=== PATIENT | male | born 1940 | race Caucasian/White ===

== ENCOUNTER 2019-06-28 22:22 | Inpatient (IN) | payer MEDICARE, MEDICAID, SELFPAY ==
--- NOTE | ~2019-06-28 | CT_ITS ---
EXAMINATION: CT abdomen pelvis w con DATE: 06/29/2019 00:10 INDICATION: Abdominal pain with rectal bleeding TECHNIQUE: Computed tomography (CT) of the abdomen and pelvis was performed with 100 mL Omnipaque-350 intravenous contrast. Automated exposure control and iterative reconstruction technique were employe d. The dose-length product was 673.92 mGy-cm. COMPARISON: 01/02/2018 FINDINGS: Respiratory motion at the lung bases with no evident airspace disease or pleural effusion. Cardiomega ly. Atherosclerotic coronary artery calcific a cyst. Postoperative change of prior median sternotomy and coronary artery bypass grafting as well as aortic valve repair. Cardiac pacemaker lead tips at th e right atrial appendage and near the apex of the right ventricle. No pericardial effusion. High attenuation material within the decompressed gallbladder which could represent vicariously excre kelsey contrast or gallstones. There is a new poorly defined approximately 3.1 x 3.5 cm low-attenuation mass at the head of the pancreas with interval atrophy atrophy of the body and tail the pancreas with dilation of the main pancreatic duct which is concerning for primary pancreatic carcinoma. There are multiple new small hypoenhancing lesions scattered throughout the liver suspicious for metastatic di sease. Spleen and bilateral adrenal glands are normal. Bilateral nonobstructing nephrolithiasis. 3.4 cm exophytic cyst at the upper pole of the left kidney. There are 3 stones in the bladder, 2 of which measuring 3 mm 4 mm appear to be positioned at the lef t ureterovesicular junction, the third 5 mm stone is located along the posterior wall cephalad to the ureter vesicular junction likely within the bladder. No hydronephrosis. Normal appendix. No abnormal bowel wall thickening or obstruction. No free intraperitoneal gas or flu id. No pathologically enlarged abdominal or pelvic lymphadenopathy. There is calcified atherosclerosi s of the aorta and many of the other arteries. Multiple chronic lumbar and lower thoracic compressio n fractures with change of prior vertebroplasty at T12 and L1. Old right superior and inferior pubic rami fractures. Left total hip arthroplasty. IMPRESSION: 1. 3.1 x 3.5 cm low-attenuation mass at the head of the pancreas concerning for primary pancreatic ca rcinoma. 2. Multiple small hypoenhancing hepatic lesions suspicious for metastatic disease. 3. High attenuation material within the decompressed gallbladder which could represent gallstones or vicariously excreted contrast if patient has had recent intravenous contrast. 4. Cardiomegaly. 5. Bilateral nephrolithiasis as well as a few stones at the bladder to which appear positioned at the left ureterovesicular junction but without hydronephrosis. Reviewed, dictated and finalized at location A. [facility] IMPRESSION: 1. 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 2. Multiple small hypoenhancing hepatic lesions suspicious for metastatic disea se. 3. High attenuation material within the decompressed gallbladder which could re present gallstones or vicariously excreted contrast if patient has had recent i ntravenous contrast. 4. Cardiomegaly. 5. Bilateral nephrolithiasis as well as a few stones at the bladder to which ap pear positioned at the left ureterovesicular junction but without hydronephrosi s.
--- NOTE | ~2019-06-28 | NM_ITS ---
EXAMINATION: NM GI bleeding DATE: 06/29/2019 12:19 INDICATION: Gastrointestinal hemorrhage. TECHNIQUE: 25.5 mCi Tc 99m in vitro labeled red cells was administered intravenously. Scintigraphic images of the abdomen were obtained for one hour. COMPARISON: CT abdomen and pelvis 06/29/2019 FINDINGS: No pattern of abnormal activity is seen in the abdomen or pelvis to suggest gastrointestina l hemorrhage. IMPRESSION: 1. No evidence of active gastrointestinal hemorrhage. Reviewed, dictated and finalized at location A. ERT[employer] INSURANCE AGENT
--- NOTE | ~2019-06-28 | XR_ITS ---
EXAMINATION: XR chest port-a-cath/central DATE: 06/29/2019 03:17 INDICATION: Central line placement. TECHNIQUE: A single frontal view of the chest was obtained. COMPARISON: Chest 2 views 01/24/2019, CT abdomen and pelvis 06/29/2019 FINDINGS: There is no pneumonia, pleural effusion, or pneumothorax. Cardiomegaly is noted. Median idris rnotomy wires are noted. There are changes of aortic valve replacement. A right subclavian central ve nous catheter is seen with tip in the superior vena cava. There is a left chest pacer with lead in ri ght atrium and right ventricular lead partially visualized. IMPRESSION: 1. Central line tip in superior vena cava. No pneumothorax. 2. Cardiomegaly. Reviewed, dictated and finalized at location A. [employer] OPERATIONS SPECIALIST
--- NOTE | ~2019-06-28 | XR_ITS ---
EXAMINATION: XR abdomen NG/feed tube insert DATE: 06/29/2019 16:22 INDICATION: Nasogastric tube placement TECHNIQUE: A supine view of the abdomen and lower chest was obtained for evaluation of feeding tube placement. COMPARISON: Chest x-ray dated 06/29/2019 FINDINGS: Nasogastric tube tip in proximal side port in the body of the stomach. Right subclavian central venou s catheter with distal tip at the midsuperior vena cava. Dual lead pacemaker seen with leads projecti ng over the expected locations of the right atrium and right ventricle. Mild airspace opacity in the right midlung zone which could represent atelectasis or pneumonia. No pu lmonary edema, pleural effusion or pneumothorax. Cardiomegaly. Median sternotomy wires, ostial marker s and mediastinal surgical clips consistent with prior coronary artery bypass grafting. Aortic valve replacement. T12 vertebroplasty. IMPRESSION: 1. Is a gastric tube in stomach. 2. New subtle airspace opacity in the right midlung zone which could represent atelectasis or pneumon ia. 3. Cardiomegaly. Reviewed, dictated and finalized at location A. INE SILVER STRIPPER IMPRESSION: 1. Is a gastric tube in stomach. 2. New subtle airspace opacity in the right midlung zone which could represent atelectasis or pneumonia. 3. Cardiomegaly.
--- NOTE | 2019-06-28 22:24 | ED.GIBLEED ---
HPI - GI Bleed General Chief complaint: GI Bleed Stated complaint: abd pain Time Seen by Provider: 06/28/19 22:26 Related Data Home Medications Medication Instructions Recorded Confirmed acetaminophen 325 mg tablet 325 mg PO Q6H PRN 03/26/19 albuterol sulfate 2.5 mg INHALATION Q6H 03/26/19 aspirin 325 mg tablet,delayed 325 mg PO DAILY 03/26/19 release cetirizine 10 mg tablet 5 mg PO DAILY PRN 03/26/19 cholecalciferol (vitamin D3) 25 1,000 unit PO DAILY 03/26/19 mcg (1,000 unit) capsule citalopram 20 mg tablet 20 mg PO DAILY 03/26/19 finasteride 5 mg tablet 5 mg PO DAILY 03/26/19 fluticasone propionate 115 2 puff INHALATION BID 03/26/19 mcg-salmeterol 21 mcg/actuation HFA inhaler fluticasone propionate 50 1 inhalation INHALATION Q12H 03/26/19 mcg/actuation blister powder for inhalation furosemide 20 mg tablet 20 mg PO QAM 03/26/19 lisinopril 2.5 mg tablet 2.5 mg PO DAILY 03/26/19 lovastatin 20 mg tablet 20 mg PO DAILY 03/26/19 mecobalamin (vitamin B12) 1,000 1,000 mcg SUBLINGUAL DAILY 03/26/19 mcg disintegrating tablet,sublingual metoprolol succinate 25 mg 25 mg PO DAILY 03/26/19 tablet,extended release 24 hr polyethylene glycol 3350 17 17 gm PO DAILY 03/26/19 gram/dose oral powder tiotropium bromide 18 mcg capsule 1 cap INHALATION DAILY 03/26/19 with inhalation device spironolactone 25 mg tablet 12.5 mg PO DAILY tablet 03/27/19 03/27/19 Allergies Allergy/AdvReac Type Severity Reaction Status Date / Time amiodarone Allergy Unknown Unknown Verified 03/27/19 13:09 citalopram Allergy Unknown Unknown Verified 03/27/19 13:09 [facility] Past Medical History Medical History (Updated 06/28/19 @ 22:35 by Max Gipson) Anemia Anxiety Asthma Back pain Bronchitis CAD (coronary artery disease) Chronic heart failure Chronic obstructive pulmonary disease, unspecified Chronic systolic heart failure Depression Dyspnea, unspecified Eczema Essential hypertension GERD (gastroesophageal reflux disease) History of cardiac arrest Hyperlipidemia, unspecified Hypotension, unspecified Kidney stones LBBB (left bundle branch block) SOB (shortness of breath) Surgical History Surgical History (Updated 06/28/19 @ 22:35 by Max Gipson) History of aortic valve replacement History of left hip replacement Social History Social History Smoking status: Former smoker Smoking end date: 05/23/13 Alcohol intake: never
--- NOTE | 2019-06-28 22:25 | ED.GIBLEED ---
HPI - GI Bleed General Chief complaint: GI Bleed Stated complaint: abd pain Time Seen by Provider: 06/28/19 22:26 Source: patient, EMS and RN notes reviewed Mode of arrival: EMS Limitations: physical limitation (hard of hearing) History of Present Illness HPI Narrative: Pt is a 79 y/o male who presents to the ED via EMS from [facility] with c/o epigastric pain and dark, tarry stools starting this morning. He notes that his pain radiates from his epigastric region down into his lower ABD, and states that his pain has worsened throughout the day. Pt is currently taking ASA. HPI limited due to the pt being hard of hearing. MD complaint: melena and other (ABD pain) Pain Consistency: other (worsening) Associated symptoms: denies other symptoms Related Data Home Medications Medication Instructions Recorded Confirmed acetaminophen 325 mg tablet 325 mg PO Q6H PRN 03/26/19 albuterol sulfate 2.5 mg INHALATION Q6H 03/26/19 aspirin 325 mg tablet,delayed 325 mg PO DAILY 03/26/19 release cetirizine 10 mg tablet 5 mg PO DAILY PRN 03/26/19 cholecalciferol (vitamin D3) 25 1,000 unit PO DAILY 03/26/19 mcg (1,000 unit) capsule citalopram 20 mg tablet 20 mg PO DAILY 03/26/19 finasteride 5 mg tablet 5 mg PO DAILY 03/26/19 fluticasone propionate 115 2 puff INHALATION BID 03/26/19 mcg-salmeterol 21 mcg/actuation HFA inhaler fluticasone propionate 50 1 inhalation INHALATION Q12H 03/26/19 mcg/actuation blister powder for inhalation furosemide 20 mg tablet 20 mg PO QAM 03/26/19 lisinopril 2.5 mg tablet 2.5 mg PO DAILY 03/26/19 lovastatin 20 mg tablet 20 mg PO DAILY 03/26/19 mecobalamin (vitamin B12) 1,000 1,000 mcg SUBLINGUAL DAILY 03/26/19 mcg disintegrating tablet,sublingual metoprolol succinate 25 mg 25 mg PO DAILY 03/26/19 tablet,extended release 24 hr polyethylene glycol 3350 17 17 gm PO DAILY 03/26/19 gram/dose oral powder tiotropium bromide 18 mcg capsule 1 cap INHALATION DAILY 03/26/19 with inhalation device spironolactone 25 mg tablet 12.5 mg PO DAILY tablet 03/27/19 03/27/19 Allergies Allergy/AdvReac Type Severity Reaction Status Date / Time amiodarone Allergy Unknown Unknown Verified 03/27/19 13:09 citalopram Allergy Unknown Unknown Verified 03/27/19 13:09 Review of Systems Review of Systems: Narrative: ROS limited due to the pt being hard of hearing. Gastrointestinal: Gastrointestinal: Reports abdominal pain (epigastric pain radiating into lower ABD) and Reports melena PMFSH Past Medical History Medical History Anemia Anxiety Asthma Back pain Bronchitis CAD (coronary artery disease) Chronic heart failure Chronic obstructive pulmonary disease, unspecified Chronic systolic heart failure Depression Dyspnea, unspecified Eczema Essential hypertension GERD (gastroesophageal reflux disease) History of cardiac arrest Hyperlipidemia, unspecified Hypotension, unspecified Kidney stones LBBB (left bundle branch block) SOB (shortness of breath) Surgical History Surgical History History of aortic valve replacement History of left hip replacement Family History Family History (Updated 06/28/19 @ 23:57 by Dana Barr DO) Father CHF (congestive heart failure) Mother CHF (congestive heart failure) Sibling Malignant neoplasm of prostate Brother Social History Social History Social History: Primary care physician: Dr. Tyler Simeon Code status: DNR per prior records, surrogate decision maker is his brother Alexandre. Smoking packs per day: 1 Smoking cigarettes per day: 20.0 Years smoked: 40 Smoking pack-years: 40.00 Smoking status: Former smoker Smoking end date: 05/23/13 Alcohol intake: never Substance use: never Living arrangements: assisted living [facility]
[2019-06-28 22:49] VITALS: BP 90/65; PULSE 120; RESP 38; TEMP 36.8; O2SAT 99
[2019-06-28] MEDS: SODIUM CHLORIDE 0.9% IV 1,000 ML 999 ML IV CONT (23:07)
[2019-06-28] MEDS: ONDANSETRON INJ 4 MG/2 ML VIAL IV PUSH (23:08)
[2019-06-28] MEDS: PANTOPRAZOLE SODIUM IV 40 MG VIAL IV PUSH (23:08)
[2019-06-28 23:13] LABS: Basophils Absolute Auto 0.1 K/mm3 (0.0-0.1); Basophils Percent Auto 0.5 % (0.2-1.2); Eosinophils Percent Auto 0.1 % (0-4.4); Hematocrit 30.6 % (42.0-52.0); Hemoglobin 9.8 g/dL (14.0-18.0); Immature Granulocyte Absolute 0.05 K/mm3 (0.00-0.031); Immature Granulocyte Percent A 0.5 % (0-0.5); Immature Platelet Fraction Pct 8.8 % (0.9-11.2); Lymphocytes Absolute Auto 1.22 K/mm3 (0.9-3.2); Lymphocytes Percent Auto 11.1 % (18.3-44.2); Mean Corpuscular Hemoglobin 31.9 pg (26-34); Mean Corpuscular Volume 99.7 fl (80-100); Mean Platelet Volume 13.2 fl (7.4-10.4); Monocytes Absolute Auto 0.5 K/mm3 (0.1-0.6); Monocytes Percent Auto 4.6 % (2.6-8.5); Neutrophils Absolute Auto 9.2 K/mm3 (1.3-6.7); Neutrophils Percent Auto 83.2 % (45.5-73.1); Platelet Count Result 123 k/mm3 (150-375); Red Blood Count 3.07 M/mm3 (4.6-6.20); Red Cell Distribution Width 15.2 % (11.5-14.5)
[2019-06-28 23:26] LABS: INR 1.2; Partial Thromboplastin Time 25.8 SECONDS (22.3-36.8); Prothrombin Time 15.1 Seconds (11.1-14.7)
[2019-06-28 23:27] VITALS: BP 80/48; PULSE 111; RESP 23; O2SAT 95
[2019-06-28 23:31] LABS: Alanine Aminotransferase 17 U/L (4-50); Albumin Level 3.1 g/dL (3.5-5.1); Alkaline Phosphatase 77 U/L (38-126); Aspartate Amino Transferase 20 U/L (17-59); Bilirubin,Total 0.8 mg/dL (0.2-1.3); Blood Urea Nitrogen 36 mg/dL (9-20); Calcium 8.9 mg/dL (8.4-10.2); Carbon Dioxide 24 mmol/L (22-30); Chloride 103 mmol/L (98-107); Estimated Glomerular Filt Rate 42; Glucose 157 mg/dL (75-110); Lactic Acid 1.7 mmol/L (0.7-2.1); Potassium 4.7 mmol/L (3.4-5.0); Sodium 137 mmol/L (137-145)
[2019-06-28] MEDS: SODIUM CHLORIDE 0.9% IV 1,000 ML 999 ML (23:44)
[2019-06-29] VITALS (39 sets, daily range): BP systolic 66–118; BP diastolic 48–84; PULSE 88–133; RESP 18–36; TEMP 36.6–37.1; O2SAT 92–100; BMI 26.6
--- NOTE | 2019-06-29 00:40 | ED.GENADULT ---
HPI - General Adult General Chief complaint: GI Bleed Stated complaint: abd pain Time Seen by Provider: 06/28/19 22:26 Source: patient, EMS and RN notes reviewed Mode of arrival: EMS Limitations: physical limitation (hard of hearing) Related Data Home Medications Medication Instructions Recorded Confirmed acetaminophen 325 mg tablet 325 mg PO Q6H PRN 03/26/19 albuterol sulfate 2.5 mg INHALATION Q6H 03/26/19 aspirin 325 mg tablet,delayed 325 mg PO DAILY 03/26/19 release cetirizine 10 mg tablet 5 mg PO DAILY PRN 03/26/19 cholecalciferol (vitamin D3) 25 1,000 unit PO DAILY 03/26/19 mcg (1,000 unit) capsule citalopram 20 mg tablet 20 mg PO DAILY 03/26/19 finasteride 5 mg tablet 5 mg PO DAILY 03/26/19 fluticasone propionate 115 2 puff INHALATION BID 03/26/19 mcg-salmeterol 21 mcg/actuation HFA inhaler fluticasone propionate 50 1 inhalation INHALATION Q12H 03/26/19 mcg/actuation blister powder for inhalation furosemide 20 mg tablet 20 mg PO QAM 03/26/19 lisinopril 2.5 mg tablet 2.5 mg PO DAILY 03/26/19 lovastatin 20 mg tablet 20 mg PO DAILY 03/26/19 mecobalamin (vitamin B12) 1,000 1,000 mcg SUBLINGUAL DAILY 03/26/19 mcg disintegrating tablet,sublingual metoprolol succinate 25 mg 25 mg PO DAILY 03/26/19 tablet,extended release 24 hr polyethylene glycol 3350 17 17 gm PO DAILY 03/26/19 gram/dose oral powder tiotropium bromide 18 mcg capsule 1 cap INHALATION DAILY 03/26/19 with inhalation device spironolactone 25 mg tablet 12.5 mg PO DAILY tablet 03/27/19 03/27/19 Allergies Allergy/AdvReac Type Severity Reaction Status Date / Time amiodarone Allergy Unknown Unknown Verified 03/27/19 13:09 citalopram Allergy Unknown Unknown Verified 03/27/19 13:09 [facility] Past Medical History Medical History (Updated 06/29/19 @ 00:41 by Oswaldo Ramirez PA-C) Anemia Anxiety Asthma Back pain On chronic narcotic therapy with history of multiple compression fractures and vertebroplasty T12 and L5 Bilateral nephrolithiasis Bronchitis CAD (coronary artery disease) Chronic systolic heart failure Echocardiogram 03/13/2019 severe left ventricular enlargement and left ventricular dysfunction with EF of 20-25%, severely thinned posterior and apical wall with severe hypokinesis, grade 1 diastolic dysfunction, moderate septal wall hypertrophy, severe left atrial enlargement, mild right atrial enlargement, severe mitral annular calcification, TAVR with bioprosthetic aortic valve replacement medical mild aortic stenosis, [id number] tricuspid regurgitation, aortic root 4 cm CKD (chronic kidney disease) stage 3, GFR 30-59 ml/min COPD (chronic obstructive pulmonary disease) With history of home O2 requirement in the past Dementia Depression Dyslipidemia Eczema Essential hypertension GERD (gastroesophageal reflux disease) History of BPH With multiple episodes of Magana catheter placement due to urinary retention History of cardiac arrest Hyperlipidemia, unspecified Ischemic cardiomyopathy Kidney stones LBBB (left bundle branch block) Macular degeneration Obstructive sleep apnea Intolerant to CPAP therapy Surgical History Surgical History (Updated 06/28/19 @ 23:55 by Dana Barr DO) History of bilateral cataract extraction History of left hip replacement April 2014 ICD (implantable cardioverter-defibrillator) in place Placed in 2002 due to cardiac arrest S/P TAVR (transcatheter aortic valve replacement) 2002 with follow-up at [place] Dr. Tong Hansen locally Status post myringotomy with tube placement of both ears Due to chronic hearing loss Family History Family History (Updated 06/28/19 @ 23:57 by Dana Barr DO) Father CHF (congestive heart failure) Mother CHF (congestive heart failure) Sibling Malignant neoplasm of prostate Brother Social History Social History (Updated 06/29/19 @ 00:04 by Dana Barr DO) Social History: Primary care phys
--- NOTE | 2019-06-29 00:55 | PM.IMHP ---
H&P: HPI History of Present Illness Chief complaint: gi bleed acute kidney injury pancreatic mass Narrative: Date and time of patient contact 06/29/2019 at 1:00 a.m. Patient was seen and examined in the ER. Rudy Choudhary is a 79 year old male with a past medical history of severe systolic dysfunction, chronic kidney disease stage 3, GERD and chronic anemia who presented to the ER with sudden onset of generalized abdominal pain with dark red blood per rectum. The patient reported that initially he was having dark red blood per rectum but as the day progressed he was having cramping abdominal pain that was 8/10 in intensity that would occur just prior to having a bowel movement. He would become lightheaded after a bowel movement. When he arrived to the ER the patient was hypotensive blood pressures of 90/65. He received 1 L of isotonic fluids with repeat blood pressure in document of 80/48 and 100/66 respectively. However the patient's suddenly had to have bowel movement and jumped up out of bed. He made it to the restroom in the ER and had large volume of blood per rectum that was bright red to dark red in color with a large amount of clots. He became diaphoretic and extremely pale at that time. His blood pressure when he returned to the room was 66/48. This episode occurred approximately 5 minutes prior to my evaluation. The patient was receiving a 2nd L of fluid bolus when I evaluated him. His blood pressures were improving and more 80 systolic when I left the patient's room the patient reported that he has been having some intermittent nausea and did have 1 episode of vomiting prior to coming to the ER. He denies having any hematemesis or coffee-ground emesis. He denies any chest pain but is feeling slightly more short of breath than at baseline. He is not very active on a day-to-day basis but is for the most part independent in his activities of daily living. He resides at [facility]. He has not noticed any lower extremity swelling or edema. He thinks that his weight has been stable. The patient was cool to touch at the time of my evaluation and denied having any fevers. He had been having some sweats and chills with his episodes of diarrhea. He denies any recent ill contacts. Patient has significant hearing loss at baseline which makes the history process somewhat difficult. The patient is alert and oriented and otherwise appropriate. Given the patient's significant abdominal pain and bloody stools CT of the abdomen pelvis with contrast was performed in the ER. Demonstrated at 3.1 x 3.5 cm low attenuating mass at the head of the pancreas concerning for primary pancreatic carcinoma with multiple small hypo enhancing hepatic lesions suspicious for metastatic disease. I discussed the CT findings with the patient and he requested that I call his brother Alexandre to update him S2 the CT results and treatment plan. 2 units of packed red blood cells have been ordered stat the patient will be admitted to the ICU. The patient has consented to central line placement due to hypotension and need for pressors. Review of Systems Review of Systems: Narrative: Except as documented in the HPI, all other systems were reviewed and are negative. [facility], [facility] Past Medical History Medical History (Updated 06/29/19 @ 01:57 by Dana Barr DO) Anemia Anxiety Asthma Back pain On chronic narcotic therapy with history of multiple compression fractures and vertebroplasty T12 and L5 Bilateral nephrolithiasis Bronchitis CAD (coronary artery disease) Chronic systolic heart failure Echocardiogram 03/13/2019 severe left ventricular enlargement and left ventricular dysfunction with EF of 20-25%, severely thinned posterior and apical wall with severe hypokinesis, grade 1 diastolic dysfunction, moderate septal wall hypertrophy, severe left atrial enlargement, mild right atrial enlargement, severe mitral annular calcification, TAVR with bioprosthe
[2019-06-29] MEDS: SODIUM CHLORIDE 0.9% IV 1,000 ML 999 ML IV CONT (01:03)
[2019-06-29] MEDS: SODIUM CHLORIDE 0.9% IV 1,000 ML 125 ML IV CONT ×2 (02:02→06:47)
[2019-06-29] MEDS: NOREPINEPHRINE 8 MG/D5W 250 ML 8 MG/250 ML BAG 9.4 MG IV CONT (03:10)
--- NOTE | 2019-06-29 03:11 | WPDPROCEDUR ---
Procedures Central Line Placement: Right SC: Discussed w/ patient and/or surrogate, the non-emergent placement of a central venous catheter, including its clinical necessity/indication & associated potential risks & complications.: Yes The patient and/or surrogate understand(s) and acknowledge(s) the need to proceed with central venous catheter insertion as an important element of the patient's clinical management.: Yes Central Line Date: 06/29/19 Central Line Time: 02:55 Pre-procedural Time-Out was completed immediately before starting the procedure and confirmed: Patient Identification, Site, Procedure, Patient Position and the Availability of Requisite Equipment.: Yes Patient Position: other (Vascular position) Patient placed on monitor/pulse ox: Yes Provider Prep: mask, sterile gown, sterile gloves, Max. sterile barrier precautions, cap and hand hygiene Central line prep: Chlorhexidine scrub and sterile full body sheet applied Local anesthesia used: lidocaine 1% Amount of anesthesia used (ml): 8 Ultrasound used for placement: No Central line lumen inserted: triple Armenian: 7 Length (cm): 16 Depth of Insertion (cm): 14 Post procedure: sutured in place, good blood return, all ports aspirated, flushed, capped, tegaderm, hemostatic disc and aseptic technique maintained throughout procedure Post procedure x-ray: tip of catheter in good position and no pneumothorax seen Patient tolerated procedure: well Complications: none Additional comments: Chest x-ray personally reviewed. Central line in appropriate position. No pneumothorax noted. Radiologic interpretation pending. Less than 5 mL of estimated blood loss
[2019-06-29 09:02] LABS: Basophils Absolute Auto 0.1 K/mm3 (0.0-0.1); Basophils Percent Auto 0.4 % (0.2-1.2); Eosinophils Percent Auto 0.1 % (0-4.4); Hematocrit 24.4 % (42.0-52.0); Hemoglobin 7.7 g/dL (14.0-18.0); Immature Granulocyte Absolute 0.07 K/mm3 (0.00-0.031); Immature Granulocyte Percent A 0.6 % (0-0.5); Lymphocytes Absolute Auto 2.14 K/mm3 (0.9-3.2); Lymphocytes Percent Auto 16.9 % (18.3-44.2); Mean Corpuscular HGB Conc 31.6 g/dl (32-36); Mean Corpuscular Hemoglobin 30.6 pg (26-34); Mean Corpuscular Volume 96.8 fl (80-100); Mean Platelet Volume 12.1 fl (7.4-10.4); Monocytes Percent Auto 8.1 % (2.6-8.5); Neutrophils Absolute Auto 9.4 K/mm3 (1.3-6.7); Neutrophils Percent Auto 73.9 % (45.5-73.1); Platelet Count Result 97 k/mm3 (150-375); Red Blood Count 2.52 M/mm3 (4.6-6.20); Red Cell Distribution Width 16.4 % (11.5-14.5); White Blood Count 12.6 K/mm3 (4.5-10.0)
[2019-06-29] MEDS: FAMOTIDINE 20 MG/2 ML VIAL IV PUSH ×2 (09:08→20:09)
[2019-06-29] MEDS: PANTOPRAZOLE SODIUM IV 40 MG VIAL IV PUSH ×2 (09:08→20:10)
[2019-06-29 09:13] LABS: Blood Urea Nitrogen 30 mg/dL (9-20); Carbon Dioxide 19 mmol/L (22-30); Chloride 111 mmol/L (98-107); Estimated CRCL calculation 43 ml/min; Estimated Glomerular Filt Rate 53; Glucose 146 mg/dL (75-110); Potassium 4.7 mmol/L (3.4-5.0); Sodium 139 mmol/L (137-145)
--- NOTE | 2019-06-29 10:23 | WPDGICN ---
Assessment and Plan Additional Plan This is an 79-year-old white male patient I am asked to see at the request of the emergency room. Patient current we resident of [facility]. Yesterday began to have bloody stools. He developed abdominal cramping associated with his bleeding and prompted him to be sent to the emergency room. In the emergency room he was noted to become hypotensive with blood pressure 80 to 90 systolic. He subsequently was admitted to the intensive care unit. I was notified to see him this morning. Patient denies any prior history of GI bleeding. His past history is significant for GE reflux. He is known to chronically be anemic. He has chronic kidney disease stage 3. And congestive heart failure. Patient is known to have dementia. Anxiety. Asthma. Dyslipidemia. Hypertension. He is very hard of hearing. Previous surgery includes an ICD pacemaker defibrillator in place. He has a history of left hip replacement. He has had cataract surgery, previous transcatheter aortic valve replacement. Medications at home include Tylenol, albuterol, aspirin, boost per own, cetirizine, vitamin D3, citalopram, finasteride, fluticasone, Lasix, lisinopril, lovastatin, B12, metoprolol, MiraLax, He reports allergy to amiodarone and citalopram. Family history is noncontributory. Physical exam reveals patient to be alert. Vital signs stable. HEENT exam unremarkable. He is anicteric. Lungs are clear to auscultation and percussion. Heart is without murmur or extra sounds. Abdominal exam bowel sounds present soft nontender with no organomegaly. Digital external rectal exam reveals bloody stools. In the ICU patient has been maintained on Levophed for blood pressure support. CT scan of the abdomen reveals 3 to 3-1/2cm mass at the head of the pancreas concerning for cancer. Multiple hepatic lesions suspicious for metastatic disease. Impression 1. GI bleeding. Appears to be lower GI by a history and clinical course. Plan is for NG tube lavage to exclude upper GI bleeding source. Nuclear medicine bleeding scan will be obtained. Patient will be transfused to maintain adequate hemoglobin. Etiology unclear at this point. Could be from diverticular bleeding. There is some concern because of apparent cancer in the pancreas. This could be potential sources well. 2. Abnormal CT scan. 3. Pancreatic mass. Holli metastases appear evident. Plan is to check CA 19-9. Liver biopsy may be required at some point. Plan for transfusion to stable hct, Nuc med bleeding scan. he may need surgical follow up if emergent surgery required. GI endoscopy will be planned after he can can be adequately prepped. We will follow with you, GI Consult Note Consult date/time: 06/29/19 10:23 HPI: Rudy Choudhary is a 79 year old male [facility] Past Medical History Medical History (Updated 06/29/19 @ 01:57 by Dana Barr, ) Anemia Anxiety Asthma Back pain On chronic narcotic therapy with history of multiple compression fractures and vertebroplasty T12 and L5 Bilateral nephrolithiasis Bronchitis CAD (coronary artery disease) Chronic systolic heart failure Echocardiogram 03/13/2019 severe left ventricular enlargement and left ventricular dysfunction with EF of 20-25%, severely thinned posterior and apical wall with severe hypokinesis, grade 1 diastolic dysfunction, moderate septal wall hypertrophy, severe left atrial enlargement, mild right atrial enlargement, severe mitral annular calcification, TAVR with bioprosthetic aortic valve replacement medical mild aortic stenosis, [id number] tricuspid regurgitation, aortic root 4 cm CKD (chronic kidney disease) stage 3, GFR 30-59 ml/min COPD (chronic obstructive pulmonary disease) With history of home O2 requirement in the past Dementia Depression Dyslipidemia Eczema Essential hypertension GERD (gastroesophageal reflux disease) History of BPH With multiple episodes o
--- NOTE | 2019-06-29 13:38 | WPDCNINT ---
Assessment and Plan Assessment and plan (1) Acute GI bleeding: Code(s): K92.2 - Gastrointestinal hemorrhage, unspecified Status: Acute Assessment and Plan: patient presented with dark blood red per rectum along with cramping abdominal pain - patient received multiple units of packed RBCs - continue monitoring H&H - nuclear med scan for GI bleeding did not show any evidence of GI hemorrhage - continue PPI b.i.d. - NG tube was inserted and level list, no coffee-ground or bright red blood was noticed (2) Abdominal pain: Qualifiers: Abdominal location: generalized Qualified Code(s): R10.84 - Generalized abdominal pain Code(s): R10.9 - Unspecified abdominal pain Status: Acute Assessment and Plan: patient with abdominal cramping, could be related to the cathartic action of the blood - CT scan of the abdomen and pelvis . 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 Multiple small hypoenhancing hepatic lesions suspicious for metastatic disease. High attenuation material within the decompressed gallbladder which could represent gallstones or vicariously excreted contrast if patient has had recent intravenous contrast. 4. Cardiomegaly. 5. Bilateral nephrolithiasis as well as a few stones at the bladder to which appear positioned at the left ureterovesicular junction but without hydronephrosis. (3) Hemorrhagic shock: Code(s): R57.8 - Other shock Status: Acute Assessment and Plan: patient with significant dark red bleeding per rectum. Hypotensive, requiring central line placement Levophed, will wean Levophed to maintain mean arterial pressure is greater than 65 mmHg - blood transfusions per GI (4) Acute renal failure superimposed on chronic kidney disease: Code(s): N17.9 - Acute kidney failure, unspecified; N18.9 - Chronic kidney disease, unspecified Status: Acute Assessment and Plan: acute renal failure most likely related to hypovolemia, GI bleed, hemorrhagic shock. Patient also has a history of chronic kidney disease - Magana catheter was inserted, will continue to monitor urine output, electrolytes and renal function (5) Chronic combined systolic and diastolic congestive heart failure: Code(s): I50.42 - Chronic combined systolic (congestive) and diastolic (congestive) heart failure Status: Acute Assessment and Plan: patient with history of systolic and diastolic dysfunction, EF of 20-25% and grade 1 diastolic dysfunction. - Patient is a DNR, DNI - will be cautious with fluids, patient may require small dose of diuretic if needed (6) Mass of pancreas: Code(s): K86.89 - Other specified diseases of pancreas Status: Acute Assessment and Plan: incidental finding of pancreatic mass on CT scan of the abdomen and pelvis as below - hematology/oncology has been consulted - CT scan of the abdomen and pelvis . 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 Multiple small hypoenhancing hepatic lesions suspicious for metastatic disease. (7) DVT prophylaxis: Code(s): Z29.9 - Encounter for prophylactic measures, unspecified Status: Acute Assessment and Plan: SCDs Additional Plan discussed with patient, his brother and sister at bedside and updated them with his condition and plan of care. They aware that we are trying to stabilize him for he could go for a colonoscopy and EGD in the morning 06/30/2019. Code status: Do not resuscitate /do not intubate critical care time spent: 39 minutes Due to a high probability of clinically significant, life threatening deterioration, the patient required my highest level of preparedness to intervene emergently and I personally spent this critical care time directly and personally managing the patient. This critical care time
[2019-06-29 13:42] LABS: Add Urine Microscopic? NO; Appearance Urine Clear (Clear); Bilirubin Urine Negative (Negative); Blood Urine Negative (Negative); Color Urine Yellow (Yellow); Glucose Urine UA Negative (Negative); Ketones Urine Negative (Negative); Leukocyte Esterase Ur Negative LEU/UL (Negative); Nitrate Urine Negative (Negative); Protein Urine Negative (Negative); Specific Grav Ur 1.028 (1.001-1.035); Urobilinogen Urine Negative mg/dL (<2.0)
[2019-06-29] MEDS: IPRATROPIUM BR 0.02% INH SOLN 0.5 MG/2.5 ML VIAL INHALATION ×2 (14:57→20:35)
[2019-06-29] MEDS: NOREPINEPHRINE 8 MG/D5W 250 ML 8 MG/250 ML BAG 26.3 MG IV CONT (14:58)
[2019-06-29] MEDS: TUBING, BLOOD PLUM PUMP TUBING 1 EACH XX (14:59)
[2019-06-29] MEDS: SODIUM CHLORIDE 0.9% IV 250 ML 30 ML IV CONT (14:59)
--- NOTE | 2019-06-29 15:19 | PM.IMPN ---
Progress Note: A&P Assessment and Plan (1) Hemorrhagic shock: Code(s): R57.8 - Other shock Status: Acute Assessment and Plan: Continue fluid resuscitation, pressors, transfusion Monitor hemoglobin and hematocrit 06/29 nuclear medicine bleeding scan negative (2) Acute GI hemorrhage: Code(s): K92.2 - Gastrointestinal hemorrhage, unspecified Status: Acute Assessment and Plan: 06/29 nuclear medicine bleeding scan negative Endoscopic evaluation when stable (3) Acute renal failure superimposed on chronic kidney disease: Qualifiers: Acute renal failure type: unspecified Chronic kidney disease stage: unspecified stage Qualified Code(s): N17.9 - Acute kidney failure, unspecified; N18.9 - Chronic kidney disease, unspecified Code(s): N17.9 - Acute kidney failure, unspecified; N18.9 - Chronic kidney disease, unspecified Status: Acute Assessment and Plan: Likely secondary to decreased perfusion due to hemorrhagic shock (4) Mass of pancreas: Code(s): K86.89 - Other specified diseases of pancreas Status: Acute Assessment and Plan: Discussed treatment options with Oncology when hemodynamically stable (5) Liver masses: Code(s): R16.0 - Hepatomegaly, not elsewhere classified Status: Acute Assessment and Plan: Discussed treatment options with Oncology when hemodynamically stable (6) Thrombocytopenia: Code(s): D69.6 - Thrombocytopenia, unspecified Status: Acute Assessment and Plan: Chronic thrombocytopenia, perhaps ITP. Monitor Subjective Date/time seen: 06/29/19 15:19 Interval history: Bloody still twice this morning. None since. Very hard of hearing. No complaints of pain. Mild shortness of breath with minimal exertion. No fevers chills sweats or urinary complaints. No other abnormal bleeding. Review of Systems Review of Systems: All systems reviewed & are unremarkable except as noted in HPI and below Exam Narrative: Exam Narrative: HEENT: EOMI, PERRL, pharyngeal mucosa pink and intact NECK: No JVD, adenopathy, or thyromegaly CHEST: Coarse BS. Normal effort. HEART: NL S1/S2, regular, no murmur ABDOMEN: BS+, soft, nontender, no mass, no bruits EXTREMITIES: No cyanosis, edema, or clubbing NEUROLOGIC: CN intact and symmetric to inspection, except very [place] MUSCULOSKELETAL: Tone and strength symmetric. PSYCH: Alert. Oriented to person, place, and time. Objective Data Vital Signs Vital Signs: Vital Signs - 24 hr 06/28/19 22:49 06/28/19 23:27 06/29/19 00:15 Temperature 98.2 F Pulse Rate 120 H 111 H 113 H Respiratory Rate 38 H 23 H 21 H Blood Pressure 90/65 L 80/48 L 100/66 Pulse Oximetry 99 95 92 06/29/19 00:53 06/29/19 01:00 06/29/19 01:29 Temperature Pulse Rate 105 H 117 H 111 H Respiratory Rate 18 30 H 18 Blood Pressure 76/56 L 66/48 L 82/70 L Pulse Oximetry 98 99 99 06/29/19 01:48 06/29/19 02:30 06/29/19 02:45 Temperature 98.3 F 98.3 F Pulse Rate 120 H 111 H 110 H Respiratory Rate 18 31 H 36 H Blood Pressure 92/62 L 78/58 L 86/57 L Pulse Oximetry 100 99 99 06/29/19 02:49 06/29/19 03:07 06/29/19 03:15 Temperature 98.1 F 98.1 F 98.5 F Pulse Rate 107 H 109 H 114 H Respiratory Rate 32 H 33 H 28 H Blood Pressure 86/57 L 81/56 L 86/57 L Pulse Oximetry 98 98 99 06/29/19 05:15 06/29/19 05:24 06/29/19 05:35 Temperature 98.3 F 98.5 F 98.4 F Pulse Rate 106 H 102 H 102 H Respiratory Rate 23 H 21 H 20 Blood Pressure 88/56 L 88/56 L 84/59 L Pulse Oximetry 96 95 96 06/29/19 06:00 06/29/19 07:00 06/29/19 08:00 Temperature 98.1 F 98.1 F 98.2 F Pulse Rate 102 H 104 H 95 Respiratory Rate 19 30 H 19 Blood Pressure 90/70 L 97/68 L 84/69 L Pulse Oximetry 96 94 97 06/29/19 10:50 06/29/19 11:07 06/29/19 11:52 Temperature 98.3 F 98.8 F 98.8 F Pulse Rate 104 H 101 H 102 H Respiratory Rate 30 H 24 H 19 Blood Pressure 95/64 L 98/76 L 108/65 Pulse Oximetry 100 100
[2019-06-29 17:12] LABS: Iron 47 ug/dL (49-181)
[2019-06-29 17:15] LABS: Immature Reticulocyte Fraction 30.6 % (3.0-15.9); Reticulocyte Hemoglobin Conten 33.6 pg (28.2-35.7); Reticulocyte Percent 2.71 % (0.7-4.3); Reticulocytes Absolute 0.08 B/L (32.2-175.7)
[2019-06-29 17:19] LABS: Hematocrit 28.1 % (42.0-52.0)
[2019-06-29 17:21] LABS: Percent Iron Saturation 16 % (20-50)
[2019-06-29] MEDS: PEG (High)/E-LYTE SOLN 4,000 ML BTL 4000 ML PO (18:36)
--- NOTE | 2019-06-29 19:59 | WPDANESEPP ---
Anes - Eval Pre Procedure Procedure: Operation Date: 06/30/19 07:30 Proposed Procedures p Esophagogastroduodenoscopy & Colonoscopy - Chinedu Wilson MD Date/Time: 06/29/19 19:59 Pre Op Diagnosis: gi bleed acute kidney injury pancreatic mass Patient Data Age: 79 Gender: M Height: 5 ft 11 in Weight: 84.5 kg Last Vital Signs Temp 98.4 F 06/29/19 17:04 Pulse 107 H 06/29/19 18:00 Resp 20 06/29/19 18:00 BP 89/53 L 06/29/19 18:00 Pulse Ox 92 06/29/19 18:00 Allergies Allergy/AdvReac Type Severity Reaction Status Date / Time amiodarone Allergy Unknown Unknown Verified 03/27/19 13:09 citalopram Allergy Unknown Unknown Verified 03/27/19 13:09 Home Medications Medication Instructions Recorded Confirmed Type acetaminophen 325 mg tablet 325 mg PO Q6H PRN 03/26/19 06/29/19 History albuterol sulfate 2.5 mg INHALATION Q6H PRN 03/26/19 06/29/19 History aspirin 325 mg tablet,delayed 325 mg PO DAILY 03/26/19 06/29/19 History release cetirizine 10 mg tablet 5 mg PO DAILY PRN 03/26/19 06/29/19 History cholecalciferol (vitamin D3) 25 1,000 unit PO DAILY 03/26/19 06/29/19 History mcg (1,000 unit) capsule citalopram 20 mg tablet 20 mg PO DAILY 03/26/19 06/29/19 History finasteride 5 mg tablet 5 mg PO DAILY 03/26/19 06/29/19 History fluticasone propionate 115 2 puff INHALATION BID 03/26/19 06/29/19 History mcg-salmeterol 21 mcg/actuation HFA inhaler furosemide 20 mg tablet 20 mg PO QAM 03/26/19 06/29/19 History lisinopril 2.5 mg tablet 2.5 mg PO DAILY 03/26/19 06/29/19 History lovastatin 20 mg tablet 20 mg PO DAILY 03/26/19 06/29/19 History mecobalamin (vitamin B12) 1,000 1,000 mcg SUBLINGUAL DAILY 03/26/19 06/29/19 History mcg disintegrating tablet,sublingual metoprolol succinate 25 mg 25 mg PO DAILY 03/26/19 06/29/19 History tablet,extended release 24 hr polyethylene glycol 3350 17 17 gm PO DAILY PRN 03/26/19 06/29/19 History gram/dose oral powder tiotropium bromide 18 mcg capsule 1 cap INHALATION DAILY 03/26/19 06/29/19 History with inhalation device spironolactone 25 mg tablet 12.5 mg PO DAILY tablet 03/27/19 03/27/19 History buspirone 10 mg tablet 10 mg PO TID PRN #90 tablet 03/30/19 06/29/19 Rx fluticasone propionate 50 2 spray NASAL DAILY #18.2 ml 04/26/19 06/29/19 Rx mcg/actuation nasal spray,suspension Laboratory Tests 06/28/19 06/28/19 06/28/19 22:56 22:57 22:57 WBC 11.0 K/mm3 H K/mm3 (4.5-10.0) RBC 3.07 M/mm3 L M/mm3 (4.6-6.20) Hgb 9.8 g/dL L g/dL (14.0-18.0) Hct 30.6 % L % (42.0-52.0) MCV 99.7 fl fl (80-100) MCH 31.9 pg pg (26-34) MCHC 32.0 g/dl g/dl (32-36) RDW 15.2 % H % (11.5-14.5) Plt Count 123 k/mm3 L k/mm3 (150-375) MPV 13.2 fl H fl (7.4-10.4) Immature Gran % (Auto) 0.5 % % (0-0.5) Neut % (Auto) 83.2 % H % (45.5-73.1) Lymph % (Auto) 11.1 % L % (18.3-44.2) [place] % (Auto) 4.6 % % (2.6-8.5) Eos % (Auto) 0.1 % % (0-4.4) Baso % (Auto) 0.5 % % (0.2-1.2) Lymph # (Auto) 1.22 K/mm3 K/mm3 (0.9-3.2) [place] # (Auto) 0.5 K/mm3 K/mm3 (0.1-0.6) Eos # (Auto) 0.0 K/mm3 K/mm3 (0-0.3) Baso # (Auto) 0.1 K/mm3 K/mm3 (0.0-0.1) Abs Immat Gran (auto) 0.05 K/mm3 H K/mm3 (0.00-0.031) Absolute Neuts (auto) 9.2 K/mm3 H K/mm3 (1.3-6.7) Absolute Nucleated RBC 0.0 K/mm3 K/mm3 (0.0-0.012) Nucleated RBC % 0.0 % % (0.0-0.2) % Immature Plt Fraction 8.8 % % (0.9-11.2) Absolute Retic Percent Retic Immature Retic Fraction Retic Hgb Content PT 15.1 Seconds H Seconds (11.1-14.7) INR 1.2 APTT 25.8 SECONDS SECONDS (22.3-36.8) Sodium Potassium Chloride Carbon Dioxide
[2019-06-29 22:29] LABS: Hematocrit 27.5 % (42.0-52.0); Hemoglobin 8.9 g/dL (14.0-18.0)
[2019-06-29 22:54] LABS: Lactate Dehydrogenase 607 U/L (313-618)
--- NOTE | 2019-06-29 23:48 | PC.NURSE ---
Patient not consuming bowel prep as quickly as anticipated. Dr Wilson notified and advised to place an NG tube to finish bowel prep. Patient refused NG placement and stated that earlier NG placement was not tolerated and would not try again. Patient stated he would drink as much as he could.
[2019-06-29 23:50] LABS: Folic Acid 15.7 ng/mL (2.76->20); Vitamin B12 > 1000.0 pg/mL (239-931)
[2019-06-30] VITALS (22 sets, daily range): BP systolic 92–127; BP diastolic 53–83; PULSE 102–122; RESP 16–31; TEMP 36.6–37.4; O2SAT 97–100
--- NOTE | 2019-06-30 | CONS_ITS ---
DATE OF CONSULTATION: 06/29/2019 REASON FOR CONSULTATION: Metastatic disease. HISTORY OF PRESENTING ILLNESS: This is an 79-year-old male, who has hearing impairment along with history of systolic dysfunction, chronic kidney stage 3 disease, and GERD, came into the hospital with generalized abdominal pain along with GI bleed. He was also complaining of lightheadedness and dizziness. He was found to be hypotensive in the ER. He denies any hematemesis. He denies any chest pain, but has some shortness of breath on admission. The patient had a CT abdomen and pelvis done in the ER that showed a 3.1 x 3.5 cm mass at the head of the pancreas along with multiple hepatic metastatic lesions. He denies any weight loss. REVIEW OF SYSTEMS: A 12-point review of systems reviewed and as per HPI, otherwise negative. PAST MEDICAL HISTORY: Asthma, anxiety, anemia, chronic back pain, bilateral kidney stone, coronary artery disease, chronic systolic dysfunction, COPD, CKD, dementia, depression, dyslipidemia, hypertension, GERD, BPH, cardiomyopathy, and obstructive sleep apnea. PAST SURGICAL HISTORY: Bilateral cataract extraction, replacement, ICD placement, status post aortic valve replacement, status post laryngectomy with tube placement on both ears. SOCIAL HISTORY: The patient quit smoking 6 years ago. Denies any alcohol use. HOME MEDICATIONS: Reviewed. ALLERGIES: REVIEWED. PHYSICAL EXAMINATION: GENERAL: This patient is an elderly male in no apparent distress, oriented x3. VITAL SIGNS: Per nursing note. HEENT: Normocephalic, atraumatic. Clear oropharynx. LUNGS: Clear to auscultation bilaterally. CARDIOVASCULAR: Regular rate and rhythm. No murmurs. ABDOMEN: Tender in the midepigastric region. Bowel sounds are positive. No hepatosplenomegaly. EXTREMITIES: No edema. NEUROLOGIC: Grossly intact. LABORATORY DATA: Showed WBC 12.6, hemoglobin 9.0, platelet 97,000, neutrophils 73%. INR 1.2. Creatinine 1.3. Iron 47, iron saturation 16%. Total bilirubin 0.2. LDH is pending. ASSESSMENT AND PLAN: 1. 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 The patient is an elderly 79-year-old male, who came into the hospital with generalized abdominal pain and gastrointestinal bleed. CT scan showed a 3.1 x 3.5 cm mass at the head of the pancreas concerning for primary pancreatic carcinoma along with multiple small hypoenhancing lesions in the liver. Gastrointestinal bleeding scan came back negative. GI consultation noted and plan for colonoscopy and esophagogastroduodenoscopy noted. Hemoglobin has improved after blood transfusion. I will order ultrasound-guided biopsy of liver metastasis to confirm the diagnosis of pancreatic cancer. CA 99 ordered and pending. 2. Anemia. Iron studies and B12 level ordered. Iron studies are more consistent with anemia of chronic disease. B12, LDH pending. This is likely secondary to anemia of chronic disease like malignancy along with renal insufficiency. We will transfuse on an as needed basis. SILVANA FRANKS M.D. GEAR REPAIRER GEAR REPAIRER D Nickie MT: [place]
[2019-06-30] MEDS: IPRATROPIUM BR 0.02% INH SOLN 0.5 MG/2.5 ML VIAL INHALATION ×4 (01:38→20:45)
[2019-06-30] MEDS: NOREPINEPHRINE 8 MG/D5W 250 ML 8 MG/250 ML BAG 22.5 MG IV CONT (04:12)
[2019-06-30 05:34] LABS: Basophils Percent Auto 0.3 % (0.2-1.2); Eosinophils Percent Auto 0.3 % (0-4.4); Hematocrit 26.3 % (42.0-52.0); Hemoglobin 8.5 g/dL (14.0-18.0); Immature Granulocyte Absolute 0.07 K/mm3 (0.00-0.031); Immature Granulocyte Percent A 0.7 % (0-0.5); Lymphocytes Percent Auto 10.8 % (18.3-44.2); Mean Corpuscular HGB Conc 32.3 g/dl (32-36); Mean Corpuscular Hemoglobin 29.6 pg (26-34); Mean Corpuscular Volume 91.6 fl (80-100); Mean Platelet Volume 12.2 fl (7.4-10.4); Monocytes Absolute Auto 0.8 K/mm3 (0.1-0.6); Monocytes Percent Auto 7.6 % (2.6-8.5); Neutrophils Absolute Auto 8.2 K/mm3 (1.3-6.7); Neutrophils Percent Auto 80.3 % (45.5-73.1); Platelet Count Result 65 k/mm3 (150-375); Red Blood Count 2.87 M/mm3 (4.6-6.20); Red Cell Distribution Width 16.5 % (11.5-14.5); White Blood Count 10.2 K/mm3 (4.5-10.0)
[2019-06-30 05:52] LABS: INR 1.4; Prothrombin Time 16.7 Seconds (11.1-14.7)
[2019-06-30 05:53] LABS: Partial Thromboplastin Time 28.3 SECONDS (22.3-36.8)
[2019-06-30 06:02] LABS: Blood Urea Nitrogen 21 mg/dL (9-20); Calcium 7.3 mg/dL (8.4-10.2); Carbon Dioxide 19 mmol/L (22-30); Chloride 108 mmol/L (98-107); Estimated CRCL calculation 46 ml/min; Estimated Glomerular Filt Rate 58; Glucose 149 mg/dL (75-110); Magnesium 1.7 mg/dL (1.6-2.3); Phosphorus 1.8 mg/dL (2.5-4.5); Sodium 137 mmol/L (137-145)
--- NOTE | 2019-06-30 07:26 | WPDANESEFPP ---
Anes - Eval Final PreProcedure Day of Procedure 06/30/19 07:26 Patient weight: overweight Heart: regular rate and rhythm Lungs: clear to auscultation and normal air movement Airway: Mallampati scale class II Neurological: alert and oriented Last oral intake: >/= 8 hours ASA classification: IV Emergent: yes Anesthetic plan: proceed Anesthesia type and monitoring: general GIVS Informed Consent: The patient's anesthetic plan and its attendant risks and benefits were discussed with the patient/family/POA. Questions were solicited and answers provided to the satisfaction of the patient/family/POA.
--- NOTE | 2019-06-30 07:58 | PM.OP ---
Procedure Note - Brief Procedure Note - Brief Date of procedure: 06/30/19 Pre-op diagnosis: gi bleed acute kidney injury pancreatic mass Surgeon: Chinedu Wilson MD Today's date 06/30/2019. Procedure EGD with biopsy. Preop diagnosis GI. Abnormal CT scan. Postop diagnosis large duodenal ulcer. Informed consent is obtained from the patient's and family. The risks benefits alternatives indications were discussed agree to prior to starting the procedure. The risks include but are not limited to adverse reaction to medications. The risk of bleeding. The risk perforation. The risk of missed pathology. Patient family agreed and procedures performed. Instrument is the Edusoftn video endoscope. Sedation is accomplished by anesthesia. Description procedure. Fujinon video endoscope was passed to the esophagus which appears normal. Squamocolumnar junction intact at 40cm. Stomach is seen in its entirety including U-turn is normal. Duodenum reveals a very large 5cm ulcerated mass in the duodenal sweep. Stigmata bleeding is noted. No active bleeding at this time however. Multiple biopsies are taken from the margin of this ulcerated mass. Impression 1. Giant duodenal ulcer. Suspect that this is related to the tumor mass seen on CT scan. Plan is to review histology. Continue high-dose proton pump inhibitor. Add Carafate. Continue to monitor hemoglobin and transfuse as necessary. Pending histology further discussions regarding code status may be required.
[2019-06-30] MEDS: LACTATED RINGERS 1,000 ML 150 ML IV CONT (08:43)
[2019-06-30] MEDS: SODIUM BICARBONATE 8.4% 50 MEQ/50 ML VIAL IV PUSH (08:43)
[2019-06-30] MEDS: FAMOTIDINE 20 MG/2 ML VIAL IV PUSH ×2 (08:44→20:41)
[2019-06-30] MEDS: PANTOPRAZOLE SODIUM IV 40 MG VIAL IV PUSH ×2 (08:44→20:41)
[2019-06-30] MEDS: SODIUM CHLORIDE 0.9% IV 1,000 ML 999 ML IV CONT (09:56)
--- NOTE | 2019-06-30 09:57 | PM.IMPN ---
Progress Note: A&P Assessment and Plan (1) Hemorrhagic shock: Code(s): R57.8 - Other shock Status: Acute Assessment and Plan: Continue fluid resuscitation, pressors, transfusion prn Monitor hemoglobin and hematocrit 06/29 nuclear medicine bleeding scan negative 06/30 hgb 8.5, unable to wean pressors, 1L saline bolus ordered (2) Acute GI hemorrhage: Code(s): K92.2 - Gastrointestinal hemorrhage, unspecified Status: Acute Assessment and Plan: 06/29 nuclear medicine bleeding scan negative 06/30 EGD with giant DU, continue PPI, carafate path pending (3) Acute renal failure superimposed on chronic kidney disease: Qualifiers: Acute renal failure type: unspecified Chronic kidney disease stage: unspecified stage Qualified Code(s): N17.9 - Acute kidney failure, unspecified; N18.9 - Chronic kidney disease, unspecified Code(s): N17.9 - Acute kidney failure, unspecified; N18.9 - Chronic kidney disease, unspecified Status: Acute Assessment and Plan: Likely secondary to decreased perfusion due to hemorrhagic shock resolved 06/30 creatinine 1.2 (4) Mass of pancreas: Code(s): K86.89 - Other specified diseases of pancreas Status: Acute Assessment and Plan: Discuss treatment options with Oncology when hemodynamically stable (5) Liver masses: Code(s): R16.0 - Hepatomegaly, not elsewhere classified Status: Acute Assessment and Plan: Discussed treatment options with Oncology when hemodynamically stable (6) Thrombocytopenia: Code(s): D69.6 - Thrombocytopenia, unspecified Status: Acute Assessment and Plan: Chronic thrombocytopenia, perhaps ITP. Monitor Subjective Date/time seen: 06/30/19 09:57 Interval history: Comfortable. Maroon stool earlier this AM. Review of Systems Review of Systems: All systems reviewed & are unremarkable except as noted in HPI and below Exam Narrative: Exam Narrative: HEENT: EOMI, PERRL, pharyngeal mucosa pink and intact NECK: No JVD, adenopathy, or thyromegaly CHEST: Coarse BS. Normal effort. HEART: NL S1/S2, regular, no murmur ABDOMEN: BS+, soft, nontender, no mass, no bruits EXTREMITIES: No cyanosis, edema, or clubbing NEUROLOGIC: CN intact and symmetric to inspection, except very [place] MUSCULOSKELETAL: Tone and strength symmetric. PSYCH: Alert. Oriented to person, place, and time. Objective Data Vital Signs Vital Signs: Vital Signs - 24 hr 06/29/19 10:00 06/29/19 10:50 06/29/19 11:07 Temperature 98.3 F 98.8 F Pulse Rate 133 H 104 H 101 H Respiratory Rate 21 H 30 H 24 H Blood Pressure 80/55 L 95/64 L 98/76 L Pulse Oximetry 97 100 100 06/29/19 11:52 06/29/19 12:00 06/29/19 12:50 Temperature 98.8 F 98.6 F 98 F Pulse Rate 102 H 111 H 105 H Respiratory Rate 19 23 H 29 H Blood Pressure 108/65 108/65 106/75 Pulse Oximetry 100 100 100 06/29/19 13:50 06/29/19 14:00 06/29/19 14:15 Temperature 98.3 F 98.4 F Pulse Rate 120 H 128 H 106 H Respiratory Rate 24 H 24 H 24 H Blood Pressure 117/64 117/84 86/65 L Pulse Oximetry 98 98 99 06/29/19 14:30 06/29/19 14:45 06/29/19 14:57 Temperature 98.6 F 98.6 F Pulse Rate 118 H 106 H 121 H Respiratory Rate 26 H 24 H 24 H Blood Pressure 102/69 118/77 Pulse Oximetry 99 99 06/29/19 15:06 06/29/19 15:30 06/29/19 16:00 Temperature 98.6 F 98.6 F Pulse Rate 114 H 124 H 110 H Respiratory Rate 24 H 26 H 19 Blood Pressure 103/63 107/64 Pulse Oximetry 100 100 06/29/19 16:30 06/29/19 17:04 06/29/19 18:00 Temperature 98.4 F 98.4 F Pulse Rate 117 H 119 H 107 H Respiratory Rate 27 H 22 H 20 Blood Pressure 107/72 107/64 89/53 L Pulse Oximetry 99 100 92 06/29/19 20:00 06/29/19 20:36 06/29/19 20:45 Temperature 98 F Pulse Rate 112 H 106 H 108 H Respiratory Rate 19 28 H 29 H Blood Pressure 107/74 Pulse Oximetry 98 06/29/19 21:30 06/29/19 21:39 06/30/19 00:00 Temperature 98 F Pulse Rate 110 H 1
[2019-06-30 10:46] LABS: Hematocrit 24.9 % (42.0-52.0); Hemoglobin 8.1 g/dL (14.0-18.0)
[2019-06-30] MEDS: SUCRALFATE 1 GM TABLET PO ×3 (11:49→20:41)
--- NOTE | 2019-06-30 12:31 | WPDINTPN ---
Progress Note: A&P Assessment and Plan (1) Acute GI bleeding: Code(s): K92.2 - Gastrointestinal hemorrhage, unspecified Status: Acute Assessment and Plan: patient presented with dark blood red per rectum along with cramping abdominal pain - patient received multiple units of packed RBCs - continue monitoring H&H - nuclear med scan for GI bleeding did not show any evidence of GI hemorrhage - continue PPI b.i.d. - NG tube was inserted and level list, no coffee-ground or bright red blood was noticed - EGD 06/30/2021 any, showed large duodenal ulcer likely related to the pancreatic mass, stigmata of bleeding was noted, no active bleeding currently. Biopsies were taken. - Patient also started on Carafate (2) Abdominal pain: Qualifiers: Abdominal location: generalized Qualified Code(s): R10.84 - Generalized abdominal pain Code(s): R10.9 - Unspecified abdominal pain Status: Acute Assessment and Plan: patient with abdominal cramping, could be related to the cathartic action of the blood - CT scan of the abdomen and pelvis . 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 Multiple small hypoenhancing hepatic lesions suspicious for metastatic disease. High attenuation material within the decompressed gallbladder which could represent gallstones or vicariously excreted contrast if patient has had recent intravenous contrast. 4. Cardiomegaly. 5. Bilateral nephrolithiasis as well as a few stones at the bladder to which appear positioned at the left ureterovesicular junction but without hydronephrosis. (3) Hemorrhagic shock: Code(s): R57.8 - Other shock Status: Acute Assessment and Plan: patient with significant dark red bleeding per rectum. Hypotensive, requiring central line placement Levophed, will wean Levophed to maintain mean arterial pressure is greater than 65 mmHg - blood transfusions per GI (4) Acute renal failure superimposed on chronic kidney disease: Qualifiers: Acute renal failure type: unspecified Chronic kidney disease stage: unspecified stage Qualified Code(s): N17.9 - Acute kidney failure, unspecified; N18.9 - Chronic kidney disease, unspecified Code(s): N17.9 - Acute kidney failure, unspecified; N18.9 - Chronic kidney disease, unspecified Status: Acute Assessment and Plan: acute renal failure most likely related to hypovolemia, GI bleed, hemorrhagic shock. Patient also has a history of chronic kidney disease - Magana catheter was inserted, will continue to monitor urine output, electrolytes and renal function - creatinine is normal, urine output has been adequate. Continue to monitor (5) Chronic combined systolic and diastolic congestive heart failure: Code(s): I50.42 - Chronic combined systolic (congestive) and diastolic (congestive) heart failure Status: Acute Assessment and Plan: patient with history of systolic and diastolic dysfunction, EF of 20-25% and grade 1 diastolic dysfunction. - Patient is a DNR, DNI - will be cautious with fluids, patient may require small dose of diuretic if needed (6) Mass of pancreas: Code(s): K86.89 - Other specified diseases of pancreas Status: Acute Assessment and Plan: incidental finding of pancreatic mass on CT scan of the abdomen and pelvis as below - hematology/oncology has been consulted - CT scan of the abdomen and pelvis . 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 Multiple small hypoenhancing hepatic lesions suspicious for metastatic disease. (7) DVT prophylaxis: Code(s): Z29.9 - Encounter for prophylactic measures, unspecified Status: Acute Assessment and Plan: SCDs Additional Plan discussed with patient's brother and updated him with patient's condition and plan of care. I
[2019-06-30] MEDS: HYDROMORPHONE HCL 1 MG/ML INJ 0.5 MG IV PUSH (16:17)
[2019-06-30 16:33] LABS: Hematocrit 24.4 % (42.0-52.0)
[2019-06-30] MEDS: NOREPINEPHRINE 8 MG/D5W 250 ML 8 MG/250 ML BAG 11.3 MG IV CONT (18:02)
[2019-07-01] VITALS (19 sets, daily range): BP systolic 89–105; BP diastolic 57–71; PULSE 103–139; RESP 17–29; TEMP 36.6–37.1; O2SAT 94–100
[2019-07-01] MEDS: IPRATROPIUM BR 0.02% INH SOLN 0.5 MG/2.5 ML VIAL INHALATION ×4 (01:32→20:10)
[2019-07-01] MEDS: SUCRALFATE 1 GM TABLET PO ×4 (05:32→20:11)
[2019-07-01 06:15] LABS: Basophils Percent Auto 0.3 % (0.2-1.2); Eosinophils Absolute Auto 0.1 K/mm3 (0-0.3); Eosinophils Percent Auto 0.7 % (0-4.4); Hematocrit 24.6 % (42.0-52.0); Immature Granulocyte Absolute 0.04 K/mm3 (0.00-0.031); Immature Granulocyte Percent A 0.5 % (0-0.5); Mean Corpuscular HGB Conc 32.5 g/dl (32-36); Mean Corpuscular Hemoglobin 30.2 pg (26-34); Mean Corpuscular Volume 92.8 fl (80-100); Mean Platelet Volume 12.4 fl (7.4-10.4); Monocytes Absolute Auto 0.6 K/mm3 (0.1-0.6); Monocytes Percent Auto 7.9 % (2.6-8.5); Neutrophils Absolute Auto 5.9 K/mm3 (1.3-6.7); Neutrophils Percent Auto 78.6 % (45.5-73.1); Platelet Count Result 65 k/mm3 (150-375); Red Blood Count 2.65 M/mm3 (4.6-6.20); Red Cell Distribution Width 16.8 % (11.5-14.5); White Blood Count 7.5 K/mm3 (4.5-10.0)
[2019-07-01 06:17] LABS: INR 1.4; Prothrombin Time 16.3 Seconds (11.1-14.7)
[2019-07-01 06:18] LABS: Partial Thromboplastin Time 29.2 SECONDS (22.3-36.8)
[2019-07-01] MEDS: HYDROMORPHONE HCL 1 MG/ML INJ 0.5 MG IV PUSH ×3 (07:32→16:17)
--- NOTE | 2019-07-01 08:19 | WPDGIPROGNO ---
Progress Note: A&P Additional Plan Patient alert this morning. Very hard of hearing. He reports epigastric discomfort. Physical exam reveals patient to be alert. Lungs are clear. Heart without murmur. Abdomen somewhat obese. Bowel sounds are present. Soft. No localized tenderness appreciated. Labs reveal a hemoglobin 8.0 hematocrit 24.6. CA 19-9 pending. Impression 1. Giant duodenal ulcer. This appears at the level of the pancreatic head. Suspect this is a pancreatic mass eroding into the duodenum. Alternatively cannot exclude large duodenal ulcer rotating into the pancreas. Histology is pending. CT scan suggest liver metastases. Plan is to continue monitor hemoglobin. Patient will be treated with high-dose proton pump inhibitor. Carafate has been added to his medical regime. Liquid diet is allowed at this time. If histology of ulcer biopsy fails to confirm tumor CT-guided liver mass biopsy may be considered. Subjective Date/time seen: 07/01/19 08:19 Objective Data Vital Signs Vital Signs: Vital Signs - 24 hr 06/30/19 09:37 06/30/19 09:43 06/30/19 10:00 Temperature Pulse Rate 111 H 113 H 117 H Respiratory Rate 17 17 20 Blood Pressure 92/53 L Pulse Oximetry 100 100 06/30/19 12:00 06/30/19 12:32 06/30/19 14:00 Temperature 37.4 C Pulse Rate 113 H 120 H 113 H Respiratory Rate 18 Blood Pressure 105/63 Pulse Oximetry 99 06/30/19 14:46 06/30/19 14:56 06/30/19 14:58 Temperature Pulse Rate 117 H 119 H Respiratory Rate 22 H 22 H Blood Pressure 97/63 L Pulse Oximetry 99 100 06/30/19 15:06 06/30/19 16:00 06/30/19 18:00 Temperature 36.7 C Pulse Rate 113 H 122 H 121 H Respiratory Rate 22 H 22 H 31 H Blood Pressure 102/83 106/79 Pulse Oximetry 100 100 06/30/19 20:00 06/30/19 20:45 06/30/19 20:54 Temperature 36.6 C Pulse Rate 116 H 115 H 116 H Respiratory Rate 22 H 22 H 22 H Blood Pressure 111/64 Pulse Oximetry 97 100 06/30/19 21:54 07/01/19 00:00 07/01/19 01:31 Temperature 36.6 C 37.1 C Pulse Rate 116 H 114 H 112 H Respiratory Rate 22 H 22 H 20 Blood Pressure 111/64 89/57 L Pulse Oximetry 97 99 07/01/19 01:41 07/01/19 01:44 07/01/19 04:00 Temperature 36.6 C Pulse Rate 118 H 114 H 114 H Respiratory Rate 24 H 22 H 22 H Blood Pressure 97/68 L 100/68 Pulse Oximetry 100 97 07/01/19 05:57 Temperature Pulse Rate 117 H Respiratory Rate 22 H Blood Pressure 102/66 Pulse Oximetry 98 Intake/Output Intake/Output: Intake & Output 06/28/19 06/29/19 06/30/19 07/01/19 23:59 23:59 23:59 23:59 Intake Total 3600 3686.5 110 Output Total 1075 1200 450 Balance 2525 2486.5 -340 Meds/Results Medications: Active Medications Generic Name Dose Route Start Last Admin Trade Name Freq PRN Reason Stop Dose Admin Famotidine 20 mg 06/29/19 09:00 06/30/19 20:41 Pepcid Iv IV PUSH 20 mg Q12HR KIMBERLEE Administration Hydromorphone HCl 0.5 mg 06/30/19 16:02 07/01/19 07:32 Dilaudid Inj IV PUSH 0.5 mg Q3H PRN Administration Pain Rated 7-10 Norepinephrine Bitartrate 8 mg in 250 mls @ 9.375 mls/hr 06/29/19 03:00 07/01/19 07:32 Levophed 8 Mg/D5w 250 Ml IV CONT 5 mcg/min .Q24H KIMBERLEE 9.4 mls/hr Titration Protocol 5 MCG/MIN Ipratropium Masterson 0.5 mg 06/29/19 14:00 07/01/19 01:32 Atrovent Neb INHALATION 0.5 mg Q6HRT KIMBERLEE Administration Levalbuterol HCl 1.25 mg 06/29/19 14:00 07/01/19 01:32 Xopenex 1.25 Mg/0.5 Ml INHALATION 1.25 mg Q6HRT KIMBERLEE Administration Pantoprazole Sodium 40 mg 06/29/19 09:00 06/30/19 20:41 Protonix Iv IV PUSH 40 mg Q12HR KIMBERLEE Administration Sucralfate 1 gm 06/30/19 11:30 07/01/19 05:32 Carafate PO 1 gm ACHS KIMBERLEE Administration Radiology Results: ITS Impressions Abdomen/Pelvis CT 06/29/19 00:21 IMPRESSION: 1. 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 2. Multiple sm
[2019-07-01] MEDS: PANTOPRAZOLE SODIUM IV 40 MG VIAL IV PUSH ×2 (09:34→20:11)
[2019-07-01] MEDS: FAMOTIDINE 20 MG/2 ML VIAL IV PUSH ×2 (09:34→20:11)
[2019-07-01 10:37] LABS: Blood Urea Nitrogen 13 mg/dL (9-20); Calcium 7.4 mg/dL (8.4-10.2); Carbon Dioxide 23 mmol/L (22-30); Chloride 109 mmol/L (98-107); Estimated CRCL calculation 55 ml/min; Estimated Glomerular Filt Rate > 60; Glucose 171 mg/dL (75-110); Potassium 3.3 mmol/L (3.4-5.0); Sodium 137 mmol/L (137-145)
--- NOTE | 2019-07-01 12:03 | WPDINTPN ---
Progress Note: A&P Assessment and Plan (1) Acute GI bleeding: Code(s): K92.2 - Gastrointestinal hemorrhage, unspecified Status: Acute Assessment and Plan: patient presented with dark blood red per rectum along with cramping abdominal pain, patient received multiple units of packed RBCs - nuclear med scan for GI bleeding did not show any evidence of GI hemorrhage - NG tube was inserted and level list, no coffee-ground or bright red blood was noticed - EGD 06/30/2019 any, showed large duodenal ulcer likely related to the pancreatic mass, stigmata of bleeding was noted, no active bleeding currently. Biopsies were taken. - Patient patient on Protonix and Carafate (2) Abdominal pain: Qualifiers: Abdominal location: generalized Qualified Code(s): R10.84 - Generalized abdominal pain Code(s): R10.9 - Unspecified abdominal pain Status: Acute Assessment and Plan: patient with abdominal cramping, could be related to the cathartic action of the blood - CT scan of the abdomen and pelvis . 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 Multiple small hypoenhancing hepatic lesions suspicious for metastatic disease. High attenuation material within the decompressed gallbladder which could represent gallstones or vicariously excreted contrast if patient has had recent intravenous contrast. 4. Cardiomegaly. 5. Bilateral nephrolithiasis as well as a few stones at the bladder to which appear positioned at the left ureterovesicular junction but without hydronephrosis. - could be related to pancreatic mass and or duodenal ulcer, continue pain control (3) Hemorrhagic shock: Code(s): R57.8 - Other shock Status: Acute Assessment and Plan: patient with significant dark red bleeding per rectum. - continues to be on Levophed, will wean Levophed to maintain mean arterial pressure is greater than 65 mmHg - blood transfusions per GI (4) Acute renal failure superimposed on chronic kidney disease: Qualifiers: Acute renal failure type: unspecified Chronic kidney disease stage: unspecified stage Qualified Code(s): N17.9 - Acute kidney failure, unspecified; N18.9 - Chronic kidney disease, unspecified Code(s): N17.9 - Acute kidney failure, unspecified; N18.9 - Chronic kidney disease, unspecified Status: Acute Assessment and Plan: RESOLVED: acute renal failure most likely related to hypovolemia, GI bleed, hemorrhagic shock. Patient also has a history of chronic kidney disease - Magana catheter was inserted, will continue to monitor urine output, electrolytes and renal function - creatinine is normal, urine output has been adequate. Continue to monitor (5) Chronic combined systolic and diastolic congestive heart failure: Code(s): I50.42 - Chronic combined systolic (congestive) and diastolic (congestive) heart failure Status: Acute Assessment and Plan: patient with history of systolic and diastolic dysfunction, EF of 20-25% and grade 1 diastolic dysfunction. - Patient is a DNR, DNI - will be cautious with fluids, patient may require small dose of diuretic if needed (6) Mass of pancreas: Code(s): K86.89 - Other specified diseases of pancreas Status: Acute Assessment and Plan: incidental finding of pancreatic mass on CT scan of the abdomen and pelvis as below - hematology/oncology has been consulted - CT scan of the abdomen and pelvis . 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 Multiple small hypoenhancing hepatic lesions suspicious for metastatic disease. (7) DVT prophylaxis: Code(s): Z29.9 - Encounter for prophylactic measures, unspecified Status: Acute Assessment and Plan: SCDs Additional Plan discussed with patient's sister updated her with patient's conditi
[2019-07-01] MEDS: POTASSIUM CHLORIDE 20 MEQ PACKET (FOR LIQUID) 40 MEQ PO (12:27)
--- NOTE | 2019-07-01 14:12 | WPDANESPN ---
Anes - Prog Note Post-Op Date/Time: 07/01/19 14:12 Cardiovascular status: other (remains on levophed gtt) Respiratory status: normal Airway patency: baseline Mental status: baseline Post-Op hydration status: normal Vital Signs: Last Vital Signs Temp 97.9 F 07/01/19 04:00 Pulse 126 H 07/01/19 12:00 Resp 20 07/01/19 08:20 BP 102/66 07/01/19 05:57 Pulse Ox 98 07/01/19 09:35 I/O: Intake & Output 06/30/19 07/01/19 07/01/19 23:59 07:59 15:59 Intake Total 370 110 Output Total 650 450 Balance -280 -340 Laboratory Tests 07/01/19 05:37 07/01/19 09:43 06/30/19 07/01/19 07/01/19 16:26 05:37 05:37 WBC 7.5 RBC 2.65 L Hgb 8.0 L 8.0 L Hct 24.4 L 24.6 L MCV 92.8 MCH 30.2 MCHC 32.5 RDW 16.8 H Plt Count 65 L MPV 12.4 H Immature Gran % (Auto) 0.5 Neut % (Auto) 78.6 H Lymph % (Auto) 12.0 L [place] % (Auto) 7.9 Eos % (Auto) 0.7 Baso % (Auto) 0.3 Lymph # (Auto) 0.90 [place] # (Auto) 0.6 Eos # (Auto) 0.1 Baso # (Auto) 0.0 Abs Immat Gran (auto) 0.04 H Absolute Neuts (auto) 5.9 Absolute Nucleated RBC 0.0 Nucleated RBC % 0.0 PT 16.3 H INR 1.4 APTT 29.2 Sodium Potassium Chloride Carbon Dioxide BUN Creatinine Estim Creat Clear Calc Estimated GFR Glucose Calcium 07/01/19 09:43 WBC RBC Hgb Hct MCV MCH MCHC RDW Plt Count MPV Immature Gran % (Auto) Neut % (Auto) Lymph % (Auto) [place] % (Auto) Eos % (Auto) Baso % (Auto) Lymph # (Auto) [place] # (Auto) Eos # (Auto) Baso # (Auto) Abs Immat Gran (auto) Absolute Neuts (auto) Absolute Nucleated RBC Nucleated RBC % PT INR APTT Sodium 137 Potassium 3.3 L Chloride 109 H Carbon Dioxide 23 BUN 13 D Creatinine 1.00 Estim Creat Clear Calc 55 Estimated GFR > 60 Glucose 171 H Calcium 7.4 L Microbiology 06/29/19 08:52 Nasopharynx MRSA Culture - Final Post-procedural complaints: none Patient Feedback: Patient satisfied with anesthetic care.
--- NOTE | 2019-07-01 17:17 | PM.IMPN ---
Progress Note: A&P Assessment and Plan (1) Hemorrhagic shock: Code(s): R57.8 - Other shock Status: Acute Assessment and Plan: Continue fluid resuscitation, pressors, transfusion prn Monitor hemoglobin and hematocrit 06/29 nuclear medicine bleeding scan negative 06/30 hgb 8.5, unable to wean pressors, 1L saline bolus ordered 07/01 hgb 8.0, weaned off pressors, mophine SL for pain (2) Acute GI hemorrhage: Code(s): K92.2 - Gastrointestinal hemorrhage, unspecified Status: Acute Assessment and Plan: 06/29 nuclear medicine bleeding scan negative 06/30 EGD with giant DU, continue PPI, carafate path pending (3) Acute renal failure superimposed on chronic kidney disease: Qualifiers: Acute renal failure type: unspecified Chronic kidney disease stage: unspecified stage Qualified Code(s): N17.9 - Acute kidney failure, unspecified; N18.9 - Chronic kidney disease, unspecified Code(s): N17.9 - Acute kidney failure, unspecified; N18.9 - Chronic kidney disease, unspecified Status: Acute Assessment and Plan: Likely secondary to decreased perfusion due to hemorrhagic shock resolved 06/30 creatinine 1.2 (4) Mass of pancreas: Code(s): K86.89 - Other specified diseases of pancreas Status: Acute Assessment and Plan: Discussed at beside with siblings, poor px, poor candidate for therapy (5) Liver masses: Code(s): R16.0 - Hepatomegaly, not elsewhere classified Status: Acute Assessment and Plan: Portends extremely poor prognosis (6) Thrombocytopenia: Code(s): D69.6 - Thrombocytopenia, unspecified Status: Acute Assessment and Plan: Chronic thrombocytopenia, perhaps ITP. Monitor Subjective Date/time seen: 07/01/19 17:17 Interval history: Moderate epigastric aching. no further overt bleeding. Review of Systems Review of Systems: All systems reviewed & are unremarkable except as noted in HPI and below Exam Narrative: Exam Narrative: HEENT: EOMI, PERRL, pharyngeal mucosa pink and intact NECK: No JVD, adenopathy, or thyromegaly CHEST: Coarse BS. Normal effort. HEART: NL S1/S2, regular, no murmur ABDOMEN: BS+, soft, nontender, no mass, no bruits EXTREMITIES: No cyanosis, edema, or clubbing NEUROLOGIC: CN intact and symmetric to inspection, except very [place] MUSCULOSKELETAL: Tone and strength symmetric. PSYCH: Alert. Oriented to person, place, and time. Objective Data Vital Signs Vital Signs: Vital Signs - 24 hr 06/30/19 18:00 06/30/19 20:00 06/30/19 20:45 Temperature 98 F Pulse Rate 121 H 116 H 115 H Respiratory Rate 31 H 22 H 22 H Blood Pressure 106/79 111/64 Pulse Oximetry 100 97 100 06/30/19 20:54 06/30/19 21:54 07/01/19 00:00 Temperature 98 F 98.8 F Pulse Rate 116 H 116 H 114 H Respiratory Rate 22 H 22 H 22 H Blood Pressure 111/64 89/57 L Pulse Oximetry 97 99 07/01/19 01:31 07/01/19 01:41 07/01/19 01:44 Temperature Pulse Rate 112 H 118 H 114 H Respiratory Rate 20 24 H 22 H Blood Pressure 97/68 L Pulse Oximetry 100 07/01/19 04:00 07/01/19 05:57 07/01/19 08:00 Temperature 97.9 F Pulse Rate 114 H 117 H 103 H Respiratory Rate 22 H 22 H Blood Pressure 100/68 102/66 Pulse Oximetry 97 98 07/01/19 08:10 07/01/19 08:20 07/01/19 09:35 Temperature Pulse Rate 109 H 110 H Respiratory Rate 20 20 Blood Pressure Pulse Oximetry 97 98 07/01/19 10:00 07/01/19 12:00 07/01/19 14:25 Temperature Pulse Rate 114 H 126 H 117 H Respiratory Rate 20 Blood Pressure Pulse Oximetry 07/01/19 14:35 Temperature Pulse Rate 115 H Respiratory Rate 20 Blood Pressure Pulse Oximetry Intake/Output Intake/Output: Intake & Output 06/28/19 06/29/19 06/30/19 07/01/19 23:59 23:59 23:59 23:59 Intake Total 3600 3686.5 183.7 Output Total 1075 1200 450 Balance 2525 2486.5 -266.3 Meds/Results Medications: Active Medications Generic Name Dose
[2019-07-01] MEDS: KCL 20 MEQ/D5/0.9% SOD CHL 1,000 ML 100 ML IV CONT (18:52)
[2019-07-02] VITALS (7 sets, daily range): BP systolic 95–98; BP diastolic 58–66; PULSE 118–129; RESP 18–30; TEMP 36.6; O2SAT 95–96
[2019-07-02] MEDS: IPRATROPIUM BR 0.02% INH SOLN 0.5 MG/2.5 ML VIAL INHALATION ×2 (01:45→08:58)
[2019-07-02] MEDS: KCL 20 MEQ/D5/0.9% SOD CHL 1,000 ML 100 ML IV CONT (04:19)
[2019-07-02] MEDS: SUCRALFATE 1 GM TABLET PO ×2 (05:46→13:08)
[2019-07-02 07:06] LABS: CA 19-9 33775 U/mL (<34)
--- NOTE | 2019-07-02 08:02 | WPDGIPROGNO ---
Progress Note: A&P Additional Plan Patient remains alert. No recent active bleeding described. Now off pressor agents. Patient complains of significant epigastric pain. Pain is worse on trying oral intake. Physical exam reveals patient to be extremely hard of hearing. Lungs are clear. Heart is without murmur. Abdomen is obese. Bowel sounds are present soft epigastric tenderness is noted. Labs reveal hemoglobin 8.0, hematocrit 24.6, MCV 92, CA 19-9 is over 33,000. Impression 1. Duodenal ulcer. Suspicious for pancreatic mass eroding into the duodenum. 2. Abnormal CT scan. 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 Elevated CA 19-9 appears to support this. 3. Epigastric pain. Appears to be related to duodenal ulcer and pancreatic mass. Plan is to review histology when available today. If duodenal ulcer biopsy unable to confirm cancer CT scattered liver biopsy would be alternative. Plan is to await histology. Further recommendations regarding code status and Oncology follow-up pending these results. Subjective Date/time seen: 07/02/19 08:02 Objective Data Vital Signs Vital Signs: Vital Signs - 24 hr 07/01/19 08:10 07/01/19 08:20 07/01/19 09:35 Temperature Pulse Rate 109 H 110 H Respiratory Rate 20 20 Blood Pressure Pulse Oximetry 97 98 07/01/19 10:00 07/01/19 12:00 07/01/19 14:00 Temperature 36.8 C Pulse Rate 114 H 124 H 117 H Respiratory Rate 18 29 H 25 H Blood Pressure 100/67 105/67 92/71 L Pulse Oximetry 97 94 94 07/01/19 14:25 07/01/19 14:35 07/01/19 16:00 Temperature 37.1 C Pulse Rate 117 H 115 H 130 H Respiratory Rate 20 20 29 H Blood Pressure 95/68 L Pulse Oximetry 100 07/01/19 20:00 07/01/19 20:10 07/01/19 20:18 Temperature 37.1 C Pulse Rate 131 H 139 H 138 H Respiratory Rate 25 H 27 H 25 H Blood Pressure 93/61 L Pulse Oximetry 94 07/02/19 01:46 07/02/19 01:53 07/02/19 02:50 Temperature Pulse Rate 129 H 128 H Respiratory Rate 26 H 30 H Blood Pressure Pulse Oximetry 96 07/02/19 04:00 Temperature Pulse Rate 118 H Respiratory Rate 24 H Blood Pressure 98/58 L Pulse Oximetry 95 Intake/Output Intake/Output: Intake & Output 06/29/19 06/30/19 07/01/19 07/02/19 23:59 23:59 23:59 23:59 Intake Total 3600 3686.5 513.7 1075 Output Total 1075 1200 775 350 Balance 2525 2486.5 -261.3 725 Meds/Results Medications: Active Medications Generic Name Dose Route Start Last Admin Trade Name Freq PRN Reason Stop Dose Admin Famotidine 20 mg 06/29/19 09:00 07/01/19 20:11 Pepcid Iv IV PUSH 20 mg Q12HR KIMBERLEE Administration Potassium Chloride/Dextrose/Sod Cl 1,000 mls @ 100 mls/hr 07/01/19 17:25 07/02/19 04:19 Kcl 20 Meq/D5/0.9% Sod Chl IV CONT 100 mls/hr .Q10H KIMBERLEE Administration Potassium Chloride 100 mls @ 25 mls/hr 07/02/19 08:00 07/02/19 07:50 Kcl 40 Meq/Water 100 Ml IVPB 07/02/19 11:59 25 mls/hr ONCE ONE Administration Magnesium Sulfate 2 gm in 50 mls @ 50 mls/hr 07/02/19 08:00 Magnesium Sulf 2 Gm/Water 50ml IVPB 07/02/19 08:59 ONCE ONE Ipratropium [place] 0.5 mg 06/29/19 14:00 07/02/19 01:45 Atrovent Neb INHALATION 0.5 mg Q6HRT KIMBERLEE Administration Levalbuterol HCl 1.25 mg 06/29/19 14:00 07/02/19 01:45 Xopenex 1.25 Mg/0.5 Ml INHALATION 1.25 mg Q6HRT KIMBERLEE Administration Lorazepam 0.5 mg 07/01/19 17:41 Ativan Inj IV PUSH Q6H PRN Anxiety Morphine Sulfate 5 mg 07/01/19 17:23 07/02/19 04:18 Roxanol PO 5 mg Q4H PRN Administration Pain Rated 7-10 Pantoprazole Sodium 40 mg 06/29/19 09:00 07/01/19 20:11 Protonix Iv IV PUSH 40 mg Q12HR KIMBERLEE Administration Sucralfate 1 gm 06/30/19 11:30 07/02/19 05:46 Carafate PO 1 gm ACHS KIMBERLEE Administration Radiology Results: ITS Impressions Abdomen/Pelvis CT 06/29/19 00:21 IMPRESSION: 1. 3.1 x 3.5 cm low-attenuation mass at the head of the pancreas concerning for
[2019-07-02 08:04] LABS: Basophils Percent Auto 0.5 % (0.2-1.2); Eosinophils Absolute Auto 0.1 K/mm3 (0-0.3); Eosinophils Percent Auto 1.3 % (0-4.4); Hematocrit 24.7 % (42.0-52.0); Hemoglobin 7.8 g/dL (14.0-18.0); Immature Granulocyte Absolute 0.02 K/mm3 (0.00-0.031); Immature Granulocyte Percent A 0.4 % (0-0.5); Lymphocytes Absolute Auto 0.69 K/mm3 (0.9-3.2); Lymphocytes Percent Auto 12.3 % (18.3-44.2); Mean Corpuscular HGB Conc 31.6 g/dl (32-36); Mean Corpuscular Hemoglobin 30.4 pg (26-34); Mean Corpuscular Volume 96.1 fl (80-100); Mean Platelet Volume 12.1 fl (7.4-10.4); Monocytes Absolute Auto 0.5 K/mm3 (0.1-0.6); Monocytes Percent Auto 8.4 % (2.6-8.5); Neutrophils Absolute Auto 4.3 K/mm3 (1.3-6.7); Neutrophils Percent Auto 77.1 % (45.5-73.1); Platelet Count Result 57 k/mm3 (150-375); Red Blood Count 2.57 M/mm3 (4.6-6.20); Red Cell Distribution Width 17.1 % (11.5-14.5); White Blood Count 5.6 K/mm3 (4.5-10.0)
[2019-07-02 08:16] LABS: Alanine Aminotransferase 19 U/L (4-50); Albumin Level 2.3 g/dL (3.5-5.1); Alkaline Phosphatase 64 U/L (38-126); Aspartate Amino Transferase 27 U/L (17-59); Bilirubin,Total 0.7 mg/dL (0.2-1.3); Blood Urea Nitrogen 10 mg/dL (9-20); Calcium 7.5 mg/dL (8.4-10.2); Carbon Dioxide 24 mmol/L (22-30); Chloride 111 mmol/L (98-107); Estimated CRCL calculation 55 ml/min; Estimated Glomerular Filt Rate > 60; Glucose 137 mg/dL (75-110); Potassium 3.9 mmol/L (3.4-5.0); Sodium 138 mmol/L (137-145)
[2019-07-02] MEDS: MAGNESIUM SULF 2 GM/WATER 50ML 2 GM/50 ML BAG IVPB (09:18)
[2019-07-02] MEDS: PANTOPRAZOLE SODIUM IV 40 MG VIAL IV PUSH (09:18)
--- NOTE | 2019-07-02 11:29 | P.DS_ITS ---
DS: Diagnosis Admitting Diagnosis Admitting Diagnosis: Other shock Discharge Diagnosis (1) Hemorrhagic shock: Code(s): R57.8 - Other shock Status: Acute Assessment and Plan: * Continue fluid resuscitation, pressors, transfusion prn * Monitor hemoglobin and hematocrit * 06/29 nuclear medicine bleeding scan negative * 06/30 hgb 8.5, unable to wean pressors, 1L saline bolus ordered * 07/01 hgb 8.0, weaned off pressors, mophine SL for pain (2) Acute GI hemorrhage: Code(s): K92.2 - Gastrointestinal hemorrhage, unspecified Status: Acute Assessment and Plan: * 06/29 nuclear medicine bleeding scan negative * 06/30 EGD with giant DU, continue PPI, carafate * path benign acute ulcer (3) Acute renal failure superimposed on chronic kidney disease: Qualifiers: Acute renal failure type: unspecified Chronic kidney disease stage: unspecified stage Qualified Code(s): N17.9 - Acute kidney failure, unspecified; N18.9 - Chronic kidney disease, unspecified Code(s): N17.9 - Acute kidney failure, unspecified; N18.9 - Chronic kidney disease, unspecified Status: Acute Assessment and Plan: * Likely secondary to decreased perfusion due to hemorrhagic shock * resolved 06/30 creatinine 1.2 (4) Mass of pancreas: Code(s): K86.89 - Other specified diseases of pancreas Status: Acute Assessment and Plan: * Discussed at beside with siblings, poor px, poor candidate for therapy * discharged to inpatient hospice (5) Liver masses: Code(s): R16.0 - Hepatomegaly, not elsewhere classified Status: Acute Assessment and Plan: * Portends extremely poor prognosis (6) Thrombocytopenia: Code(s): D69.6 - Thrombocytopenia, unspecified Status: Acute Assessment and Plan: * Chronic thrombocytopenia, perhaps ITP. DS: Summary Hospital Course Reason for hospitalization: shock, gi bleed Hospital Course: Admitted with GI bleed and hemorrhagic shock. CT revealed pancreatic and liver masses. Resuscitated with transfusions, saline, pressors. EGD with giant DU w/o active bleeding. Status at Discharge Functional status at discharge: bed bound Time Spent with Patient Time attestation: Total time spent providing and/or coordinating discharge services: Exam Narrative: Exam Narrative: HEENT: EOMI, PERRL, pharyngeal mucosa pink and intact NECK: No JVD, adenopathy, or thyromegaly CHEST: Coarse BS. Normal effort. HEART: NL S1/S2, regular, no murmur ABDOMEN: BS+, TENDER EPIGASTRIUM EXTREMITIES: No cyanosis, edema, or clubbing NEUROLOGIC: CN intact and symmetric to inspection, except very [place] MUSCULOSKELETAL: Tone and strength symmetric. PSYCH: Alert. Oriented to person, place, and time. DS: Data Data Completed and Pending Pending studies at discharge: Pending at discharge 06/30/19 07:56 Surgical [PTH] Routine Labs on day of discharge: Labs from last 24 hours 07/02/19 07/02/19 06/29/19 07:59 07:59 13:13 WBC 5.6 RBC 2.57 L Hgb 7.8 L Hct 24.7 L MCV 96.1 MCH 30.4 MCHC 31.6 L RDW 17.1 H Plt Count 57 L MPV 12.1 H Immature Gran % (Auto) 0.4 Neut % (Auto) 77.1 H Lymph % (Auto) 12.3 L [place] % (Auto) 8.4 Eos % (Auto) 1.3 Baso % (Auto) 0.5 Lymph # (Auto) 0.69 L [place] # (Auto) 0.5 Eos # (Auto) 0.1
--- NOTE | 2019-07-02 11:29 | PM.DS ---
DS: Diagnosis Admitting Diagnosis Admitting Diagnosis: Other shock Discharge Diagnosis (1) Hemorrhagic shock: Code(s): R57.8 - Other shock Status: Acute Assessment and Plan: Continue fluid resuscitation, pressors, transfusion prn Monitor hemoglobin and hematocrit 06/29 nuclear medicine bleeding scan negative 06/30 hgb 8.5, unable to wean pressors, 1L saline bolus ordered 07/01 hgb 8.0, weaned off pressors, mophine SL for pain (2) Acute GI hemorrhage: Code(s): K92.2 - Gastrointestinal hemorrhage, unspecified Status: Acute Assessment and Plan: 06/29 nuclear medicine bleeding scan negative 06/30 EGD with giant DU, continue PPI, carafate path benign acute ulcer (3) Acute renal failure superimposed on chronic kidney disease: Qualifiers: Acute renal failure type: unspecified Chronic kidney disease stage: unspecified stage Qualified Code(s): N17.9 - Acute kidney failure, unspecified; N18.9 - Chronic kidney disease, unspecified Code(s): N17.9 - Acute kidney failure, unspecified; N18.9 - Chronic kidney disease, unspecified Status: Acute Assessment and Plan: Likely secondary to decreased perfusion due to hemorrhagic shock resolved 06/30 creatinine 1.2 (4) Mass of pancreas: Code(s): K86.89 - Other specified diseases of pancreas Status: Acute Assessment and Plan: Discussed at beside with siblings, poor px, poor candidate for therapy discharged to inpatient hospice (5) Liver masses: Code(s): R16.0 - Hepatomegaly, not elsewhere classified Status: Acute Assessment and Plan: Portends extremely poor prognosis (6) Thrombocytopenia: Code(s): D69.6 - Thrombocytopenia, unspecified Status: Acute Assessment and Plan: Chronic thrombocytopenia, perhaps ITP. DS: Summary Hospital Course Reason for hospitalization: shock, gi bleed Hospital Course: Admitted with GI bleed and hemorrhagic shock. CT revealed pancreatic and liver masses. Resuscitated with transfusions, saline, pressors. EGD with giant DU w/o active bleeding. Status at Discharge Functional status at discharge: bed bound Time Spent with Patient Time attestation: Total time spent providing and/or coordinating discharge services: Exam Narrative: Exam Narrative: HEENT: EOMI, PERRL, pharyngeal mucosa pink and intact NECK: No JVD, adenopathy, or thyromegaly CHEST: Coarse BS. Normal effort. HEART: NL S1/S2, regular, no murmur ABDOMEN: BS+, TENDER EPIGASTRIUM EXTREMITIES: No cyanosis, edema, or clubbing NEUROLOGIC: CN intact and symmetric to inspection, except very [place] MUSCULOSKELETAL: Tone and strength symmetric. PSYCH: Alert. Oriented to person, place, and time. DS: Data Data Completed and Pending Pending studies at discharge: Pending at discharge 06/30/19 07:56 Surgical [PTH] Routine Labs on day of discharge: Labs from last 24 hours 07/02/19 07/02/19 06/29/19 07:59 07:59 13:13 WBC 5.6 RBC 2.57 L Hgb 7.8 L Hct 24.7 L MCV 96.1 MCH 30.4 MCHC 31.6 L RDW 17.1 H Plt Count 57 L MPV 12.1 H Immature Gran % (Auto) 0.4 Neut % (Auto) 77.1 H Lymph % (Auto) 12.3 L [place] % (Auto) 8.4 Eos % (Auto) 1.3 Baso % (Auto) 0.5 Lymph # (Auto) 0.69 L [place] # (Auto) 0.5 Eos # (Auto) 0.1 Baso # (Auto) 0.0 Abs Immat Gran (auto) 0.02 Absolute Neuts (auto) 4.3 Absolute Nucleated RBC 0.0 Nucleated RBC % 0.0 Sodium 138 Potassium 3.9 Chloride 111 H Carbon Dioxide 24 BUN 10 Creatinine 1.00 Estim Creat Clear Calc 55 Estimated GFR > 60 Glucose 137 H Calcium 7.5 L Total Bilirubin 0.7 AST 27 ALT 19 Alkaline Phosphatase 64 Total Protein 4.0 L Albumin 2.3 L CA 19-9 Antigen 49261 H Discharge Plan Discharge Attending physician on discharge: Alex Cedillo Consulting providers: Miguelito Ramirez ; Lindy Keenan ; Demar Wilson
--- NOTE | 2019-07-02 11:54 | WPDINTPN ---
Progress Note: A&P Assessment and Plan (1) Acute GI bleeding: Code(s): K92.2 - Gastrointestinal hemorrhage, unspecified Status: Acute Assessment and Plan: patient presented with dark blood red per rectum along with cramping abdominal pain, patient received multiple units of packed RBCs - nuclear med scan for GI bleeding did not show any evidence of GI hemorrhage - EGD 06/30/2019 any, showed large duodenal ulcer likely related to the pancreatic mass, stigmata of bleeding was noted, no active bleeding currently. Biopsies were taken. - Patient patient on Protonix and Carafate - hemoglobin has been stable, no more bloody bowel movement (2) Abdominal pain: Qualifiers: Abdominal location: generalized Qualified Code(s): R10.84 - Generalized abdominal pain Code(s): R10.9 - Unspecified abdominal pain Status: Acute Assessment and Plan: patient with abdominal cramping, could be related to the cathartic action of the blood - CT scan of the abdomen and pelvis . 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 Multiple small hypoenhancing hepatic lesions suspicious for metastatic disease. High attenuation material within the decompressed gallbladder which could represent gallstones or vicariously excreted contrast if patient has had recent intravenous contrast. 4. Cardiomegaly. 5. Bilateral nephrolithiasis as well as a few stones at the bladder to which appear positioned at the left ureterovesicular junction but without hydronephrosis. - could be related to pancreatic mass and or duodenal ulcer, continue pain control - CA 19-9 significantly elevated - liver biopsy was canceled (3) Hemorrhagic shock: Code(s): R57.8 - Other shock Status: Acute Assessment and Plan: patient with significant dark red bleeding per rectum. - continues to be on Levophed, will wean Levophed to maintain mean arterial pressure is greater than 65 mmHg - blood transfusions per GI (4) Acute renal failure superimposed on chronic kidney disease: Qualifiers: Acute renal failure type: unspecified Chronic kidney disease stage: unspecified stage Qualified Code(s): N17.9 - Acute kidney failure, unspecified; N18.9 - Chronic kidney disease, unspecified Code(s): N17.9 - Acute kidney failure, unspecified; N18.9 - Chronic kidney disease, unspecified Status: Acute Assessment and Plan: RESOLVED: acute renal failure most likely related to hypovolemia, GI bleed, hemorrhagic shock. Patient also has a history of chronic kidney disease - Magana catheter was inserted, will continue to monitor urine output, electrolytes and renal function - creatinine is normal, urine output has been adequate. Continue to monitor (5) Chronic combined systolic and diastolic congestive heart failure: Code(s): I50.42 - Chronic combined systolic (congestive) and diastolic (congestive) heart failure Status: Acute Assessment and Plan: patient with history of systolic and diastolic dysfunction, EF of 20-25% and grade 1 diastolic dysfunction. - Patient is a DNR, DNI - will be cautious with fluids, patient may require small dose of diuretic if needed (6) Mass of pancreas: Code(s): K86.89 - Other specified diseases of pancreas Status: Acute Assessment and Plan: incidental finding of pancreatic mass on CT scan of the abdomen and pelvis as below - hematology/oncology has been consulted - CT scan of the abdomen and pelvis . 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 Multiple small hypoenhancing hepatic lesions suspicious for metastatic disease. - CA 19-9 is significantly elevated (7) DVT prophylaxis: Code(s): Z29.9 - Encounter for prophylactic measures, unspecified Status: Acute Assessment and Plan: SCDs Additional
== END 2019-07-02 13:31 | disposition hospice, inpatient (51) | DRG 377 ==
LOC: ANHED 06-29 01:31 → ANHICU 06-29 01:38
PROVIDERS: Internal Medicine; Internal Medicine Gastroenterology; Internal Medicine Hematology & Oncology; Admitting Provider Internal Medicine; Emergency Provider Emergency Medicine; PCP Internal Medicine; Visit Provider Internal Medicine
PROC: 0DJ08ZZ Inspection of Upper Intestinal Tract, Via Natural or Artificial Opening Endoscopic (ICD-10-PCS; CPT 43235; principal; 2019-06-30 07:30)
DX: K26.4 Chronic or unspecified duodenal ulcer with hemorrhage (principal); R57.8 Other shock; N17.9 Acute kidney failure, unspecified; I50.42 Chronic combined systolic (congestive) and diastolic (congestive) heart failure; I42.9 Cardiomyopathy, unspecified; I13.0 Hypertensive heart and chronic kidney disease with heart failure and stage 1 through stage 4 chronic kidney disease, or unspecified chronic kidney disease; N18.3 Chronic kidney disease, stage 3 (moderate); K21.9 Gastro-esophageal reflux disease without esophagitis; D63.1 Anemia in chronic kidney disease; I95.9 Hypotension, unspecified; F41.8 Other specified anxiety disorders; J45.909 Unspecified asthma, uncomplicated; Z87.442 Personal history of urinary calculi; I25.10 Atherosclerotic heart disease of native coronary artery without angina pectoris; Z95.3 Presence of xenogenic heart valve; J44.9 Chronic obstructive pulmonary disease, unspecified; E78.5 Hyperlipidemia, unspecified; K86.9 Disease of pancreas, unspecified; I44.7 Left bundle-branch block, unspecified; H35.30 Unspecified macular degeneration; G47.33 Obstructive sleep apnea (adult) (pediatric); Z98.41 Cataract extraction status, right eye; Z98.42 Cataract extraction status, left eye; Z96.642 Presence of left artificial hip joint; Z95.810 Presence of automatic (implantable) cardiac defibrillator; R16.0 Hepatomegaly, not elsewhere classified; D69.6 Thrombocytopenia, unspecified; L30.9 Dermatitis, unspecified; Z79.891 Long term (current) use of opiate analgesic; H91.90 Unspecified hearing loss, unspecified ear; G89.29 Other chronic pain; M54.9 Dorsalgia, unspecified; N40.0 Benign prostatic hyperplasia without lower urinary tract symptoms; Z87.891 Personal history of nicotine dependence
CPT/HCPCS: 36415; 36430; 74177; 78278; 80048; 80053; 81003; 82607; 82728; 82746; 83540; 83550; 83605; 83615; 83735; 84100; 85014; 85018; 85025; 85046; 85055; 85610; 85730; 86301; 86850; 86900; 86901; 86920; 87081; 88305; 88342; 94640; 96361; 96374; 96375; 99285; A9270; A9560; C1751; C9113; J0131; J0171; J1170; J2370; J2405; J2704; J3475; J3480; J7030; J7050; J7120; P9016; Q9967

== ENCOUNTER 2019-07-02 13:31 | HOS | payer OTHER, MEDICARE, MEDICAID, SELFPAY ==
[2019-07-02] MEDS: MORPHINE SULFATE 2 MG/ML INJ IV PUSH ×2 (17:07→20:14)
--- NOTE | 2019-07-02 17:26 | PM.IMHP ---
H&P: HPI History of Present Illness Chief complaint: hospice/systolic heart failure Narrative: Rudy Choudhary is a 79 year old male was seen at 17:00. This unfortunate elderly gentleman was admitted to acute care June 29 with acute gastrointestinal bleeding and severe symptomatic anemia with hemorrhagic shock. He was resuscitated with multiple units of blood in IV fluids. He was treated with IV Protonix. He also suffered acute kidney injury. He remained in intensive care throughout his hospitalization. Unfortunately imaging of his abdomen with CT scanning showed pancreatic mass with liver metastases. EGD showed a giant duodenal ulcer with either tumor penetrating the ulcer or the ulcer penetrating tumor. His CA 19-9 was over 33,000. Because of thrombocytopenia was felt a liver biopsy was unnecessary given that he was not a candidate for aggressive therapy due to his medical issues including congestive heart failure and acute on chronic kidney failure and poor functional status with palliative performance score of only 30. Would advance from clear liquid to full liquid diet he began experiencing severe epigastric abdominal pain aching and sharp pain with nausea but no emesis. Therefore his family opted for inpatient hospice care with hopes of taking him home on hospice when his abdominal pain was controlled. Review of Systems Review of Systems: All systems reviewed & are unremarkable except as noted in HPI and below PMFSH Past Medical History Medical History Anemia Anxiety Asthma Back pain On chronic narcotic therapy with history of multiple compression fractures and vertebroplasty T12 and L5 Bilateral nephrolithiasis Bronchitis CAD (coronary artery disease) Chronic systolic heart failure Echocardiogram 03/13/2019 severe left ventricular enlargement and left ventricular dysfunction with EF of 20-25%, severely thinned posterior and apical wall with severe hypokinesis, grade 1 diastolic dysfunction, moderate septal wall hypertrophy, severe left atrial enlargement, mild right atrial enlargement, severe mitral annular calcification, TAVR with bioprosthetic aortic valve replacement medical mild aortic stenosis, [id number] tricuspid regurgitation, aortic root 4 cm CKD (chronic kidney disease) stage 3, GFR 30-59 ml/min COPD (chronic obstructive pulmonary disease) With history of home O2 requirement in the past Dementia Depression Dyslipidemia Eczema Essential hypertension GERD (gastroesophageal reflux disease) History of BPH With multiple episodes of Magana catheter placement due to urinary retention History of cardiac arrest Hyperlipidemia, unspecified Ischemic cardiomyopathy Kidney stones LBBB (left bundle branch block) Macular degeneration Obstructive sleep apnea Intolerant to CPAP therapy Surgical History Surgical History History of bilateral cataract extraction History of left hip replacement April 2014 ICD (implantable cardioverter-defibrillator) in place Placed in 2002 due to cardiac arrest S/P TAVR (transcatheter aortic valve replacement) 2002 with follow-up at [facility], Dr. Fortune locally Status post myringotomy with tube placement of both ears Due to chronic hearing loss Family History Family History Father CHF (congestive heart failure) Mother CHF (congestive heart failure) Sibling Malignant neoplasm of prostate Brother Social History Social History Social History: Primary care physician: Dr. Tyler Simeon Code status: DNR per prior records, surrogate decision maker is his brother Alexandre. Smoking packs per day: 1 Smoking cigarettes per day: 20.0 Years smoked: 40 Smoking pack-years: 40.00 Smoking status: Former smoker Tobacco type: cigarettes Smok
[2019-07-02 18:30] VITALS: BP 93/66; PULSE 150; RESP 26; O2SAT 98
--- NOTE | 2019-07-02 18:35 | PC.NURSE ---
This patient, Rudy Choudhary, was admitted to 3 [facility] Surg Room 318-01. Patient/family oriented to hospital policies and general routines including ID bracelet, bed and alarms, visiting hours, pain management, procedures, bathroom and other care routines, personal items, smoking policy, room service/diet, and visiting hours. Valuables list has been completed. Information on how to activate the Rapid Response Team has been discussed. Patient/Family are encouraged to report perceived risks to care and to ask questions if they do not understand what they are told or what they should do.
--- NOTE | 2019-07-02 18:48 | PC.NURSE ---
1815-Patient transferred to Room 318 via bed. Report given to BART Hart. All questions answered.
[2019-07-02] MEDS: PROCHLORPERAZINE EDISYLATE 10 MG/2 ML VIAL IV PUSH (19:02)
[2019-07-02] MEDS: LORAZEPAM INJ 2 MG/ML VIAL 1 MG IV PUSH (20:13)
[2019-07-02] MEDS: PANTOPRAZOLE SODIUM IV 40 MG VIAL IV PUSH (20:14)
--- NOTE | 2019-07-02 20:50 | PC.NURSE ---
Antolin Don assembler caterpillar spider, present and updated on patient anxiety and restlessness at beginning of shift. Discussed medications ordered and administered for comfort.
[2019-07-02 22:00] VITALS: BP 82/60; PULSE 133; RESP 26; TEMP 36.8; O2SAT 98
[2019-07-03] MEDS: MORPHINE SULFATE 2 MG/ML INJ IV PUSH ×9 (01:02→21:32)
[2019-07-03] MEDS: LORAZEPAM INJ 2 MG/ML VIAL 1 MG IV PUSH ×4 (01:40→19:28)
--- NOTE | 2019-07-03 01:40 | PC.NURSE ---
Bed alarming. Patient found leaning forward, reaching for the chair against the wall at the foot of the bed. Disoriented, short of breath. Oxygen tubing found on bed. Assisted to chair, then total assist of 3 to return to bed. Time spent at bedside. Bed alarm active.
[2019-07-03] MEDS: PANTOPRAZOLE SODIUM IV 40 MG VIAL IV PUSH ×2 (11:30→20:51)
[2019-07-03 14:00] VITALS: BP 86/54; PULSE 108; RESP 22; TEMP 37.4
[2019-07-03] MEDS: GLYCOPYRROLATE INJ (*SP) 0.2 MG/ML VIAL 0.1 MG IV PUSH ×2 (15:52→20:41)
[2019-07-03 19:30] VITALS: RESP 30
--- NOTE | 2019-07-03 22:15 | PC.NURSE ---
Call placed to [facility] to notify of expiration.
--- NOTE | 2019-07-03 23:00 | PC.NURSE ---
Second call placed to [facility] through the exchange to notify morale officer of expiration. Explained return call was not received.
--- NOTE | 2019-07-03 23:35 | PC.NURSE ---
[facility] present at nurses station.
--- NOTE | 2019-07-03 23:55 | PC.NURSE ---
Antolin Don, RN, notified per telephone of expiration.
--- NOTE | 2019-07-19 12:00 | PM.DDS ---
Discharge Sum: Prov Provider Primary care physician: Tyler Simeon DO Admitting provider: Alex Cedillo MD Discharge Sum: Diag Contributing Factors (1) Palliative care by specialist: (2) Liver masses: (3) Mass of pancreas: (4) Duodenal ulcer: (5) Chronic combined systolic and diastolic congestive heart failure: (6) Acute renal failure superimposed on chronic kidney disease: (7) Acute GI hemorrhage: (8) Thrombocytopenia: Discharge Sum: Summary Date and Time Date of admission: 07/02/19 13:31 Summary Details: Admitted for inpatient palliative care/hospice. Medications titrated to comfort. Patient peacefully. Additional Data Attending physician: Alex Cedillo MD
== END 2019-07-03 22:10 | disposition expired | DRG 378 ==
LOC: ANHICU 14:06 → ANH3MEDSUR 18:42
PROVIDERS: Admitting Provider Internal Medicine; PCP Internal Medicine; Visit Provider Internal Medicine
DX: K26.4 Chronic or unspecified duodenal ulcer with hemorrhage (principal); I50.42 Chronic combined systolic (congestive) and diastolic (congestive) heart failure; N17.9 Acute kidney failure, unspecified; C78.7 Secondary malignant neoplasm of liver and intrahepatic bile duct; C25.9 Malignant neoplasm of pancreas, unspecified; I42.9 Cardiomyopathy, unspecified; Z51.5 Encounter for palliative care; R10.84 Generalized abdominal pain; N18.9 Chronic kidney disease, unspecified; F41.8 Other specified anxiety disorders; J44.9 Chronic obstructive pulmonary disease, unspecified; D69.6 Thrombocytopenia, unspecified; M54.9 Dorsalgia, unspecified; Z87.442 Personal history of urinary calculi; Z79.891 Long term (current) use of opiate analgesic; I25.10 Atherosclerotic heart disease of native coronary artery without angina pectoris; F03.90 Unspecified dementia, unspecified severity, without behavioral disturbance, psychotic disturbance, mood disturbance, and anxiety; E78.5 Hyperlipidemia, unspecified; I44.7 Left bundle-branch block, unspecified; H35.30 Unspecified macular degeneration; G47.33 Obstructive sleep apnea (adult) (pediatric); Z98.49 Cataract extraction status, unspecified eye; Z96.642 Presence of left artificial hip joint; Z95.810 Presence of automatic (implantable) cardiac defibrillator; H91.93 Unspecified hearing loss, bilateral; Z95.2 Presence of prosthetic heart valve
CPT/HCPCS: A9270; C9113; J0780; J2060; J2270